=== PATIENT | female | born 1940 | race Caucasian/White ===

== ENCOUNTER 2020-04-19 16:24 | Inpatient (IN) | payer OTHER ==
[2020-04-19] MEDS ORDERED: LACTATED RINGERS SOLUTION 1000 ML INFUS.BAG IV ONE (17:25)
--- NOTE | 2020-04-19 17:44 | PDOC ---
History of Present Illness - General Chief Complaint: Lightheaded Stated Complaint: DIZZINESS Time Seen by Provider: 04/19/20 16:35 - History of Present Illness Initial Comments: 04/19/20 17:30 79F PMH HTN, CAD, PVD, thoracic aortic aneurism p/w repeated episodes of dizziness/lightheadedness since yesterday. Pt states symptoms began last evening when she stood up from the couch after dinner. She felt as if the room was spinning, the she might pass out, or that she might fall. She also vomited, NBNB. The next day, these symptoms recurred, with the exception of nausea, when she stood up from a seated position. Denies ear pain, tinnitus, nausea, headache, fever, or any other symptoms. States she has been taking her medica tions intermittently. States she had been hydrating well, but eating less. ROS GENERAL/CONSTITUTIONAL: No fever or chills. No weakness. HEAD, EYES, EARS, NOSE AND THROAT: No change in vision. No ear pain or discharge. No sore throat. CARDIOVASCULAR: No chest pain or shortness of breath RESPIRATORY: No cough, wheezing, or hemoptysis. GASTROINTESTINAL: No nausea, diarrhea or constipation. GENITOURINARY: No dysuria, frequency, or change in urination. MUSCULOSKELETAL: No joint or muscle swelling or pain. No neck or back pain. SKIN: No rash NEUROLOGIC: +dizziness/lightheadedness. No headache, loss of consciousness, or change in strength/sensation. ENDOCRINE: No increased thirst. No abnormal weight change HEMATOLOGIC/LYMPHATIC: No anemia, easy bleeding, or history of blood clots. ALLERGIC/IMMUNOLOGIC: No hives or skin allergy. PE GENERAL: Awake, alert, and fully oriented, in no acute distress HEAD: No signs of trauma, normocephalic, atraumatic EYES: PERRLA, EOMI, sclera anicteric, conjunctiva clear. No nystagmus ENT: Auricles normal inspection, hearing grossly normal, nares patent, oropharynx clear without exudates. Moist mucosa NECK: Normal ROM, supple, no lymphadenopathy, JVD, or masses LUNGS: No distress, speaks full sentences, clear to auscultation bilaterally HEART: Regular rate and rhythm, normal S1 and S2, 2/6 systolic murmur radiating to carotid best heard in aortic position, no rubs or gallops ABDOMEN: Soft, nontender, normoactive bowel sounds. No guarding, no rebound. No masses EXTREMITIES : Normal inspection, Normal range of motion, no edema. No clubbing or cyanosis. NEUROLOGICAL: Cranial nerves II through XII grossly intact. Normal speech, no focal sensorimotor deficits. Normal finger to nose, heel to madrigal, no dysdiadokinesia, negative romberg. Her symptoms appear when standing, and hesitant gait SKIN: Warm, Dry, normal turgor, no rashes or lesions noted Assessment and Plan 79F PMH HTN, CAD, PVD, thoracic aortic aneurism p/w repeated episodes of d izziness/lightheadedness since yesterday. Pre-syncope vs vertigo. Differential for pre-syncope includes orthostasis (negative orthostatics here), vasovagal, and more concerning pathology including ACS, arrhythmia, brain bleed. Differential for vertigo includes BPPV, supported by sudden onset and occurring with position change from seat to stand, also includes central causes, but less likely given story and exam. -EKG, CXR, CBC, CMP, trops: unremarkable -CT-head -1000ml NS 04/19/20 19:02 Reassess Radiology called about CT-head: small bleed vs. old calcification. Will get repeat CT head in 6-12 hours vs. MRI. Will likely defer decision to admitting team. Patient has no neuro deficits at present, denies nausea, dizziness at rest, or headache. Patient's BP elevated to 180s. Will recheck and administer home BP meds which she did not take today. Repeat EKG unchanged. Admit to tele-obs for pre-syncope Signed out to night team, pending admission. 04/19/20 19:08 Past History - Medical History Allergies/Adverse Reactions: Allergies Allergy/AdvReac Type Severity Reaction Status Date / Time No Known Allergies Allergy Verified 04/19/20 17:45 Home Medications: Ambulatory Orders Aspirin [ASA -] 81 mg PO DAILY 06/12/16 Atorvastatin Ca [Lipitor] 40 mg PO HS 06/12/16 Clopidogrel Bisulfate [Plavix -] 75 mg PO DAILY 06/12/16 Levothyroxine [Synthroid -] 150 mcg PO DAILY 06/12/16 Metoprolol Succinate [Toprol Xl] 50 mg PO BID 06/12/16 Losartan Potassium [Cozaar -] 100 mg PO DAILY #60 tablet 06/14/16 Amlodipine Besylate [Norvasc -] 10 mg PO DAILY 08/20/18 Nifedipine ER [Procardia Xl -] 60 mg PO DAILY 04/19/20 COPD: No HTN: Yes Hypercholesterolemia: Yes Thyroid Disease: Yes - Surgical History Cardiac Surgery: Yes ([facility]) - Psycho-Social/Smoking History Smoking History: Never smoked Have you smoked in the past 12 months: Yes Number of Cigarettes Smoked Daily: 10 'Breaking Loose' booklet given: 06/13/16 - Substance Abuse Hx (Audit-C & DAST Scrn) How often the patient has a drink containing alcohol: Never Score: In Men: 4 or > Positive; In Women: 3 or > Positive: 0 Screen Result (Pos requires Nsg. Audit-10AR): Negative *Physical Exam - Vital Signs Last Vital Signs Temp Pulse Resp BP Pulse Ox 97.4 F L 67 20 151/88 98 04/19/20 16:25 04/19/20 16:25 04/19/20 16:25 04/19/20 17:19 04/19/20 16:25 ED Treatment Course - LABORATORY CBC & Chemistry Diagram: 04/19/20 17:30 04/19/20 17:30 Discharge - Discharge Information Problems reviewed: Yes Clinical Impression/Diagnosis: Pre-syncope, Dizziness - Admission Yes - Follow up/Referral - Patient Discharge Instructions - Post Discharge Activity
[2020-04-19 17:45] LABS: BASO % 1.2 % (0-2.0); HEMATOCRIT 43.4 % (32.4-45.2); HEMOGLOBIN 14.5 GM/dL (10.7-15.3); LYMPH % 21.8 % (8-40); MCH 31.5 pg (25.7-33.7); MCHC 33.3 g/dl (32.0-36.0); MEAN CELL VOLUME 94.6 fl (80-96); MONO % 5.6 % (3.8-10.2); NEUT % 69.4 % (42.8-82.8); PLATELET COUNT 204 K/MM3 (134-434); RBC 4.58 M/mm3 (3.60-5.2); RDW 13.4 % (11.6-15.6); WHITE BLOOD COUNT 8.3 K/mm3 (4.0-10.0)
[2020-04-19 18:21] LABS: ALBUMIN 3.9 g/dl (3.4-5.0); ALK PHOS 75 U/L (45-117); ANION GAP 9 MMOL/L (8-16); BILIRUBIN,TOTAL 0.4 mg/dL (0.2-1); BLOOD UREA NITROGEN 19.2 mg/dL (7-18); CALCIUM 9.3 mg/dL (8.5-10.1); CHLORIDE 106 mmol/L (98-107); CO2 25 mmol/L (21-32); CREATININE 0.9 mg/dL (0.55-1.3); GLUCOSE,RANDOM 120 mg/dL (74-106); POTASSIUM 4.2 mmol/L (3.5-5.1); SGOT/AST 17 U/L (15-37); SGPT/ALT 20 U/L (13-61); SODIUM 141 mmol/L (136-145); TOT PROT 6.8 g/dl (6.4-8.2)
--- NOTE | 2020-04-19 18:35 | PDOC ---
Documentation entered by Shaw Victoria SCRIBE, acting as scribe for Zenobia Shafer MD. Zenobia Shafer MD: This documentation has been prepared by the fideibe, Shaw Victoria SCRIBE, under my direction and personally reviewed by me in its entirety. I confirm that the documentation accurately reflects all work, treatment, procedures, and medical decision making performed by me. Attending Attestation - Resident Resident Name: [email or web address] - ED Attending Attestation I have performed the following: I have examined & evaluated the patient, The case was reviewed & discussed with the resident, I agree w/resident's findings & plan, Exceptions are as noted - HPI HPI: 04/19/20 17:32 The patient is an 79 year old female with a significant past medical history of HTN, HLD, CAD, PVD, thoracic aortic aneurism, cardiac stents placed - 4 years ago at [facility] who presents to the ED with dizziness that began last night. The patient reports while sitting down eating last night she stood up and i mmediately felt dizzy and like the room spinning but also described as lightheadedness. This caused nausea and one episode of NBNB vomiting. She endorses the lightheadedness has continued today whenever she stands but denies any further nausea of vomiting. The patient also endorses feeling unsteady and unbalanced on her feet. The patient denies chest pain and shortness of breath. Denies fever, chills, and/or any other GI symptoms. Denies any symptoms. Denies any other symptoms. Allergies: NKDA - Physicial Exam PE: 04/19/20 18:30 General: well appearing HEENT: NCAT, no nystagmus Chest: CTAB, good air entry, no wheezes rales or rhonchi CVS: + s1 s2 Neuro: awake, alert, responds appropriately to questions, ambulatory with steady gait, no focal deficits - Medical Decision Making 04/19/20 18:32 79 yo F here with dizziness often described as lightheadedness but with some component of room spinning, no focal deficits on exam and patient outside TPA window and lower suspicion for CVA. More likely presyncopal symptoms possibly 2/2 ACS vs. arrythmia vs. electrolyte abnormality vs. lower suspicion for infection given absence of infectious complaints vs. low suspicion for dissection or critical stenosis given duration of symptoms and patient only with complains when she stands up/changes position. Plan: -labs -cxr -CT head -EKG -admit for presyncope in high risk cardiac patient This clinical encounter is taking place during a federal and state health care emergency attributable to the novel [place] Virus pandemic. The Deputy Court of the Department of Health and Human Services has declared, pursuant to the Public Health Service Act 319F-3 (42 U.S.C. 247d-6d), that a covered persons activities related to medical countermeasures against COVID-19 will be immune from liability under Federal and State law. Discharge - Discharge Information Problems reviewed: Yes Clinical Impression/Diagnosis: Pre-syncope, Dizziness Condition: Stable - Follow up/Referral - Patient Discharge Instructions - Post Discharge Activity
[2020-04-19] MEDS ORDERED: amLODIPine BESYLATE 5 MG TABLET (FP) PO ONE (19:03)
[2020-04-19] MEDS ORDERED: NIFEdipine E.R 60 MG TABLET PO ONE (19:04)
[2020-04-19] MEDS ORDERED: amLODIPine BESYLATE 5 MG TABLET (FP) ONE (19:11)
[2020-04-19] MEDS ORDERED: NIFEdipine E.R. 30 MG TABLET ONE (19:59)
--- NOTE | 2020-04-19 20:14 | PDOC ---
*Physical Exam - Vital Signs Last Vital Signs Temp Pulse Resp BP Pulse Ox 97.4 F L 74 18 197/119 H 98 04/19/20 16:25 04/19/20 20:00 04/19/20 20:00 04/19/20 20:00 04/19/20 20:00 ED Treatment Course - LABORATORY CBC & Chemistry Diagram: 04/19/20 17:30 04/19/20 17:30 - ADDITIONAL ORDERS Additional order review: Laboratory Results 04/19/20 17:30 Sodium 141 Potassium 4.2 Chloride 106 Carbon Dioxide 25 Anion Gap 9 BUN 19.2 H Creatinine 0.9 Est GFR (CKD-EPI)AfAm 69.50 Est GFR (CKD-EPI)NonAf 59.96 Random Glucose 120 H Calcium 9.3 Total Bilirubin 0.4 AST 17 ALT 20 Alkaline Phosphatase 75 Troponin I < 0.02 Total Protein 6.8 Albumin 3.9 04/19/20 17:30 RBC 4.58 MCV 94.6 MCHC 33.3 RDW 13.4 MPV 9.0 D Neutrophils % 69.4 Lymphocytes % 21.8 Monocytes % 5.6 Eosinophils % 2.0 Basophils % 1.2 - Medications Given in the ED: ED Medications Discontinued Medications Generic Name Dose Route Start Last Admin Trade Name Freq PRN Reason Stop Dose Admin Amlodipine Besylate 5 mg 04/19/20 19:03 04/19/20 19:15 Norvasc - PO 04/19/20 19:04 5 mg ONCE ONE Administration Lactated Ringer's 1,000 ml 04/19/20 17:25 04/19/20 17:43 Lactated Ringers Solution IV 04/19/20 17:26 1,000 ml ONCE ONE Administration Metoprolol Succinate 50 mg 04/19/20 19:03 04/19/20 19:15 Toprol Xl - PO 04/19/20 19:04 50 mg ONCE ONE Administration Nifedipine 60 mg 04/19/20 19:04 04/19/20 20:03 Procardia Xl - PO 04/19/20 19:05 60 mg ONCE ONE Administration Medical Decision Making - Medical Decision Making 04/19/20 20:14 CTH - very small hyperdensity R solano radiata image 36 - small bleed vs calcification, chronic ischemic changes Admitted to tele hospitalist Consulted neurosx Dr De Souza - agrees with repeat imaging, BP control, not surgical candidate, no NSAIDs, will evaluate inpatient Discharge - Discharge Information Problems reviewed: Yes Clinical Impression/Diagnosis: Pre-syncope, Dizziness Condition: Stable - Follow up/Referral - Patient Discharge Instructions - Post Discharge Activity
[2020-04-19] MEDS ORDERED: SODIUM CHLORIDE 1,000 ML IV SCH ×2 (20:30→21:00)
[2020-04-19] MEDS ORDERED: LOSARTAN POTASSIUM 50 MG TABLET (FP) PO ONE (20:38)
--- NOTE | 2020-04-19 20:53 | HP ---
CHIEF COMPLAINT: Dizziness PCP: HISTORY OF PRESENT ILLNESS: Pt is a 79 year old female with a PMHx of HTN, HLD, CAD, thoracic aortic aneurysm, cardiac stent (4 years ago at [facility]), PVD presenting after she stood up from her chair last night which caused the room to spin. Pt states this continued for some time and was unable to get up without the room spinning in fear of falling down. Pt denies any loss of consciousness, or head trauma as she immediately sat down back in her chair to avoid a fall. States she eventually got up to get her dinner after symptoms improved slightly, which she was able to eat. Shortly afterwards, she had an episode of vomiting (nonbloody, nonbilious) which contained her food that she just ate. Pt states she came to the ED as her symptoms of vertigo still persisted, and is now complaining of an occipital headache. Pt admits to smoking 1 pack of cigarettes every 3 days for "as long as she can remember". Admits to headache, nausea, vomiting x1. Denies headache, chest pain, SOB, facial droop, muscle weakness, slurred speech, diarrhea, constipation, urinary symptoms. In the ED, pt was found to have BP 198/78 and was given Norvasc 5mg and Metoprolol 100mg. Repeat BP 180/108. EKG showed NSR and no ischemic changes. Trop negative x1. PAST MEDICAL HISTORY: As stated in HPI PAST SURGICAL HISTORY: Cardiac stents Allergies No Known Allergies Allergy (Verified 04/19/20 17:45) HOME MEDICATIONS: Home Medications Medication Instructions Recorded Aspirin [ASA -] 81 mg PO DAILY 06/12/16 Atorvastatin Ca [Lipitor] 40 mg PO HS 06/12/16 Clopidogrel Bisulfate [Plavix -] 75 mg PO DAILY 06/12/16 Levothyroxine [Synthroid -] 150 mcg PO DAILY 06/12/16 Metoprolol Succinate [Toprol Xl] 50 mg PO BID 06/12/16 Losartan Potassium [Cozaar -] 100 mg PO DAILY #60 tablet 06/14/16 Amlodipine Besylate [Norvasc -] 10 mg PO DAILY 08/20/18 Nifedipine ER [Procardia Xl -] 60 mg PO DAILY 04/19/20 REVIEW OF SYSTEMS CONSTITUTIONAL: Absent: fever, chills, diaphoresis, generalized weakness, malaise, loss of appetite, weight change HEENT: Absent: rhinorrhea, nasal congestion, throat pain, throat swelling, difficulty swallowing, mouth swelling, ear pain, eye pain, visual changes CARDIOVASCULAR: Absent: chest pain, syncope, palpitations, irregular heart rate, lightheadedness, peripheral edema RESPIRATORY: Absent: cough, shortness of breath, dyspnea with exertion, orthopnea, wheezing, stridor, hemoptysis GASTROINTESTINAL: Absent: abdominal pain, abdominal distension, nausea, vomiting, diarrhea, constipation, melena, hematochezia GENITOURINARY: Absent: dysuria, frequency, urgency, hesitancy, hematuria, flank pain, genital pain MUSCULOSKELETAL: Absent: myalgia, arthralgia, joint swelling, back pain, neck pain SKIN: Absent: rash, itching, pallor HEMATOLOGIC/IMMUNOLOGIC: Absent: easy bleeding, easy bruising, lymphadenopathy, frequent infections ENDOCRINE: Absent: unexplained weight gain, unexplained weight loss, heat intolerance, cold intolerance NEUROLOGIC: Admits headache occipital, dizziness Absent: focal weakness or paresthesias, unsteady gait, seizure, mental status changes, bladder or bowel incontinence PSYCHIATRIC: Absent: anxiety, depression, suicidal or homicidal ideation, hallucinations. PHYSICAL EXAMINATION Vital Signs - 24 hr 04/19/20 04/19/20 04/19/20 16:25 17:19 18:58 Temperature 97.4 F L Pulse Rate 67 Pulse Rate [ Left Radial] Respiratory 20 Rate Blood Pressure 165/84 Blood Pressure 180/97 H [Left Arm] Blood Pressure 163/103 H [Left side Sitting] Blood Pressure 175/98 H [Left side Standing] Blood Pressure 151/88 [Left side Supine] O2 Sat by Pulse 98 Oximetry (%) 04/19/20 04/19/20 19:10 20:00 Temperature Pulse Rate Pulse Rate [ 68 74 Left Radial] Respiratory 18 18 Rate Blood Pressure Blood Pressure 198/78 H 197/119 H [Left Arm] Blood Pressure [Left side Sitting] Blood Pressure [Left side Standing] Blood Pressure [Left side Supine] O2 Sat by Pulse 97 98 Oximetry (%) GENERAL: Awake, alert, and fully oriented, in no acute distress. HEAD: Normal with no signs of trauma. EYES: Pupils equal, round and reactive to light, extraocular movements intact, sclera anicteric, conjunctiva clear. No lid lag. EARS, NOSE, THROAT: Ears normal, nares patent, oropharynx clear without exudates. Moist mucous membranes. NECK: Normal range of motion, supple without lymphadenopathy, JVD, or masses. LUNGS: Breath sounds equal, clear to auscultation bilaterally. No wheezes, and no crackles. No accessory muscle use. HEART: Regular rate and rhythm, normal S1 and S2. 3/6 systolic murmur in aortic area. ABDOMEN: Soft, nontender, not distended, normoactive bowel sounds, no guarding, no rebound, no masses. No hepatomegaly or splenomegaly. MUSCULOSKELETAL: Normal range of motion at all joints. No bony deformities or tenderness. No CVA tenderness. UPPER EXTREMITIES: 2+ pulses, warm, well-perfused. No cyanosis. No clubbing. No peripheral edema. LOWER EXTREMITIES: 2+ pulses, warm, well-perfused. No calf tenderness. No peripheral edema. NEUROLOGICAL: Dizziness upon standing up "room spinning". Cranial nerves II-XII intact. Normal speech. Normal gait. Normal finger to nose, heel to madrigal testing. PSYCHIATRIC: Cooperative. Good eye contact. Appropriate mood and affect. SKIN: Warm, dry, normal turgor, no rashes or lesions noted, normal capillary refill. Laboratory Results - last 24 hr 04/19/20 04/19/20 17:30 17:30 WBC 8.3 RBC 4.58 Hgb 14.5 Hct 43.4 MCV 94.6 MCH 31.5 MCHC 33.3 RDW 13.4 Plt Count 204 MPV 9.0 D Absolute Neuts (auto) 5.7 Neutrophils % 69.4 Lymphocytes % 21.8 Monocytes % 5.6 Eosinophils % 2.0 Basophils % 1.2 Nucleated RBC % 0 Sodium 141 Potassium 4.2 Chloride 106 Carbon Dioxide 25 Anion Gap 9 BUN 19.2 H Creatinine 0.9 Est GFR (CKD-EPI)AfAm 69.50 Est GFR (CKD-EPI)NonAf 59.96 Random Glucose 120 H Calcium 9.3 Total Bilirubin 0.4 AST 17 ALT 20 Alkaline Phosphatase 75 Troponin I < 0.02 Total Protein 6.8 Albumin 3.9 ASSESSMENT/PLAN: Pt is a 79 year old female with PMHx of HTN, thoracic aortic aneurysm, CAD sp stents, HLD presenting with episodes of dizziness since last night admitted for presyncopal episode (rule out hemorrhage). CT head showed small bleed vs old calcification. BP elevated at 190s/100s. #Presyncopal episode rule out intracranial hemorrhage -Initial CT showed possible small bleed vs old calcifiation as per Imaging adoption coordinator; repeat head CT in 6 hours -Admit to tele -Neurosurg consulted (Dr. De Souza) -Neurology consulted (Dr. Kumari) -NPO in case of any intervention by Neurosurg -Avoid full dose ASA/anticoagulation -Smoking cessation counseling #Hypertensive urgency vs emergency -BP in 190s/100s ; given Norvasc 5mg, Metoprolol 100mg and Procardia 60mg, Losartan 50mg in ED -EKG NSR, no ST changes, troponins negative x1 -Serial trops and repeat EKG in AM -Cardio (Dr. Hollingsworth) consulted due to hx of thoracic aortic aneurysm #BPPV -Started on meclizine 25mg daily -Possible BPPV due to vertigo symptoms in advanced age patient #Hx of HLD -Continued home Lipitor 40mg FEN: -NS at 45cc/hr -Sodium controlled diet Prophylaxis: -SCD Dispo: Admitted to tele for hypertensive emergency vs. urgency with rule out brain bleed. Neurosurg, neurology and cardiology consults placed. Follow up on CT head in 6 hours to rule out brain bleed. Trops and EKG in AM. Family Medical History Family History: Unremarkable Problem List - Problem (1) Dizziness Code(s): R42 - DIZZINESS AND GIDDINESS (2) Pre-syncope Code(s): R55 - SYNCOPE AND COLLAPSE (3) CAD (coronary artery disease) Code(s): I25.10 - ATHSCL HEART DISEASE OF [place] CORONARY ARTERY W/O ANG PCTRS (4) Claudication Code(s): I73.9 - PERIPHERAL VASCULAR DISEASE, UNSPECIFIED (5) Encounter for smoking cessation counseling Code(s): Z71.6 - TOBACCO ABUSE COUNSELING (6) HTN (hypertension) Code(s): I10 - ESSENTIAL (PRIMARY) HYPERTENSION Visit type - Medication Review Med list reviewed for High Risk Meds patients 65 and older: No - Emergency Visit Emergency Visit: Yes ED Registration Date: 04/19/20 Care time: The patient presented to the Emergency Department on the above date and was hospitalized for further evaluation of their emergent condition. - New Patient This patient is new to me today: Yes Date on this admission: 04/19/20 - Critical Care Critical Care patient: No ATTENDING PHYSICIAN STATEMENT I saw and evaluated the patient. I reviewed the resident's note and discussed the case with the resident. I agree with the resident's findings and plan as documented. SUBJECTIVE: OBJECTIVE: ASSESSMENT AND PLAN:
--- NOTE | 2020-04-19 20:58 | PN ---
Teaching Attending Note Name of Resident: Edwin Ayala ATTENDING PHYSICIAN STATEMENT I saw and evaluated the patient. I reviewed the resident's note and discussed the case with the resident. I agree with the resident's findings and plan as documented. SUBJECTIVE: 79 year old female with a significant past medical history of HTN, HLD, PVD, thoracic aortic aneurism, CAD s/p stents presented with lightheadedness, dizziness and headache. As per patient her symptoms started last night after having dinner. She was trying to stand up from sitting position and started feeling dizzy. She described dizziness as room spinning sensation. She also feels room spinning sensation when she lies on left side. Associated symptoms were nausea and NB vomiting. Her lightheadedness continued to day so decided to come to hospital. She denies chest pain, SOB, focal weakness, facial droop, slurred speech, diarrhea, constipation, urinary symptoms. OBJECTIVE: Last Vital Signs Temp Pulse Resp BP Pulse Ox 97.4 F L 74 18 197/119 H 98 04/19/20 16:25 04/19/20 20:00 04/19/20 20:00 04/19/20 20:00 04/19/20 20:00 GENERAL: Normal built, NAD HEAD: NC/AT EYES: PERRLA, EOMI, sclera anicteric, conjunctiva clear. No nystagmus ENT: Auricles normal inspection, hearing grossly normal, nares patent, oropharynx clear without exudates. Moist mucosa NECK: Normal ROM, supple, no lymphadenopathy, JVD, or masses LUNGS: No distress, speaks full sentences, clear to auscultation bilaterally HEART: RRR, s1s2+, systolic murmur aortic area ABDOMEN: Soft, nontender, normoactive bowel sounds. No guarding, no rebound. No masses EXTREMITIES : Normal inspection, Normal range of motion, no edema. No clubbing or cyanosis. NEUROLOGICAL:carnial nerves intact, A&0 x3, no focal neuralgic deficit, feels dizzy upon standing up, Finger nose negative SKIN: Warm, Dry, normal turgor, no rashes or lesions note She was found to have eleavted BP on arriva 180s/120 Ct head showed calcification vs small bleed ASSESSMENT AND PLAN: Possible Hypertensive emergency as CT head reporting small bleed vs calcification r/o ICH Dizzziness /positional vertigo possible BPPV r/o orthostasis / cardiac arrhythmias mild dehydration HTN, HLD, CAD, PVD, thoracic aortic aneurism Admit to tele] Neurosurgery was consulted by ED follow recommendations BP control : She received Norvasc and metoprolol. Give home dose losartan add hydralazine if needed resume home antihypertensives from AM serial cardiac enzymed EKG Beronica maneuver trial of meclizine repeat CT head in 6 hours resume home meds DVT ppx gentle hydration Fall precautions mg,phos, CPK, TSH discussed with resident staff in details
[2020-04-19] MEDS ORDERED: ATORVASTATIN CA 40 MG TABLET (FP) ONE (21:45)
[2020-04-19] MEDS ORDERED: LOSARTAN POTASSIUM 50 MG TABLET (FP) ONE (21:45)
[2020-04-19] MEDS: ATORVASTATIN CA 40 MG TABLET (FP) PO SCH (21:48)
[2020-04-19] MEDS ORDERED: MECLIZINE HCL 25 MG TABLET (FP) PO ONE (22:17)
[2020-04-19] MEDS ORDERED: MECLIZINE HCL 25 MG TABLET (FP) ONE (22:57)
[2020-04-19] MEDS: SODIUM CHLORIDE 1,000 ML IV SCH (23:15)
[2020-04-20 06:17] VITALS: BMI 24.0
[2020-04-20] MEDS ORDERED: LEVOTHYROXINE NA 125 MCG TABLET (FP) PO SCH (07:00)
[2020-04-20 07:44] LABS: BASO % 1.3 % (0-2.0); EOS % 2.6 % (0-4.5); HEMATOCRIT 45.7 % (32.4-45.2); HEMOGLOBIN 15.3 GM/dL (10.7-15.3); LYMPH % 29.2 % (8-40); MCH 31.7 pg (25.7-33.7); MCHC 33.5 g/dl (32.0-36.0); MEAN CELL VOLUME 94.7 fl (80-96); MEAN PLT VOLUME 9.9 fl (7.5-11.1); MONO % 7.3 % (3.8-10.2); NEUT % 59.6 % (42.8-82.8); PLATELET COUNT 209 K/MM3 (134-434); RBC 4.83 M/mm3 (3.60-5.2); RDW 13.3 % (11.6-15.6)
[2020-04-20 08:15] LABS: ALK PHOS 81 U/L (45-117); ANION GAP 6 MMOL/L (8-16); BILIRUBIN,TOTAL 0.6 mg/dL (0.2-1); BLOOD UREA NITROGEN 12.1 mg/dL (7-18); CALCIUM 9.8 mg/dL (8.5-10.1); CHLORIDE 108 mmol/L (98-107); CO2 30 mmol/L (21-32); CREATININE 0.8 mg/dL (0.55-1.3); GLUCOSE,RANDOM 93 mg/dL (74-106); MAGNESIUM 2.1 mg/dL (1.8-2.4); POTASSIUM 3.8 mmol/L (3.5-5.1); SGOT/AST 15 U/L (15-37); SGPT/ALT 20 U/L (13-61); SODIUM 144 mmol/L (136-145); TOT PROT 7.2 g/dl (6.4-8.2)
--- NOTE | 2020-04-20 08:24 | CON.NEURO ---
Consult Consult Specialty:: [place] Referred by:: PCP Reason for Consultation:: Dizziness - History of Present Illness History of Present Illness: 79 years Right-handed female patient with present medical history: PMHx of HTN, HLD, CAD, thoracic aortic aneurysm, cardiac stent (4 years ago at [facility]), PVD According to the patient she stood up and she felt dizzy no loss of consciousness no seizure-like activity. No report of any recent travel patient denies any loss of consciousness CAT scan of the head revealed mild 0.5 mm area of hyperdensity consistent with petechial hemorrhage. When the patient came into the emergency room she was stepwise patient was admitted to the medical floor telemetry for further treatment and management. Since admission no seizure activity no loss of consciousness no chest pain. in the emergency room when the patient presented she was slightly hemodynamically unstable with a blood pressure high. Patient was on aspirin and Plavix at home - History Source History Provided By: Patient Limitations to Obtaining History: No Limitations - Past Medical History Cardio/Vascular: Yes: CAD, HTN, Hyperlipdemia, Other (claudication) ...: No Endocrine: Yes: Hypothyroidism - Past Surgical History Past Surgical History: Yes: Stent - Alcohol/Substance Use Hx Alcohol Use: No History of Substance Use: reports: None - Smoking History Smoking history: Current every day smoker Have you smoked in the past 12 months: Yes Aproximately how many cigarettes per day: 4 - Social History ADL: Independent History of Recent Travel: Yes ([place]) Home Medications - Allergies Allergies/Adverse Reactions: Allergies Allergy/AdvReac Type Severity Reaction Status Date / Time No Known Allergies Allergy Verified 04/19/20 17:45 - Home Medications Home Medications: Ambulatory Orders Aspirin [ASA -] 81 mg PO DAILY 06/12/16 Atorvastatin Ca [Lipitor] 40 mg PO HS 06/12/16 Clopidogrel Bisulfate [Plavix -] 75 mg PO DAILY 06/12/16 Levothyroxine [Synthroid -] 125 mcg PO DAILY 06/12/16 Metoprolol Succinate [Toprol Xl] 50 mg PO BID 06/12/16 Losartan Potassium [Cozaar -] 100 mg PO DAILY #60 tablet 06/14/16 Amlodipine Besylate [Norvasc -] 10 mg PO DAILY 08/20/18 Nifedipine ER [Procardia Xl -] 60 mg PO DAILY 04/19/20 Family Medical History Family History: Unremarkable Review of Systems - Review of Systems Constitutional: reports: No Symptoms Eyes: reports: No Symptoms Physical Exam-Neuro Vital Signs: Vital Signs Temperature 98.0 F 04/20/20 05:00 Pulse Rate 68 04/20/20 05:00 Respiratory Rate 20 04/20/20 05:00 Blood Pressure 151/91 04/20/20 05:00 O2 Sat by Pulse Oximetry (%) 95 04/20/20 05:00 Labs: CBC, BMP 04/20/20 06:46 - Neuro Exam Level Of Consciousness: Yes: Oriented to Person, Oriented to Place, Oriented to Time Eyes: Yes: PERRLA Speech: WNL Dominant Hand: Right Cranial Nerves II-XII Intact: Yes Gag: Present DTR's: 1+ Left Bicep, 1+ Right Bicep, 1+ Left Tricep, 1+ Right Tricep Response to light touch: Normal Response to pain prick: Normal Response to temperature: Normal Response to vibration: Normal Motor Strength: 3/5: Left Arm, Right Arm, Left Leg, Right Leg Gait: Deferred Imaging - Results Cat Scan: Image Reviewed Problem List - Problems (1) Hemorrhagic stroke Code(s): I61.9 - NONTRAUMATIC INTRACEREBRAL HEMORRHAGE, UNSPECIFIED (2) Dizziness Code(s): R42 - DIZZINESS AND GIDDINESS (3) Hypertensive emergency Code(s): I16.1 - HYPERTENSIVE EMERGENCY Assessment/Plan 1. Tight blood pressure control. 2. The hemorrhage is so tiny that the risk with continuing the antiplatelet therapy will be very minimal 3. Take the aspirin every other day. 4. Continue Plavix the same. 5. There is no need for an MRI of the brain as the final change the plan of treatment. 6. Follow-up with cardiology. 7. Physical therapy. Thank you very much for allowing me to be part this patient's neurological care Tadeo Kumari M.D.
[2020-04-20] MEDS ORDERED: PT OWN MED DRAWER 7, Y5N ONE ×2 (09:07→10:49)
--- NOTE | 2020-04-20 09:32 | EKG ---
Test Reason : Blood Pressure : / mmHG Vent. Rate : 065 BPM Atrial Rate : 065 BPM P-R Int : 192 ms QRS Dur : 078 ms QT Int : 448 ms P-R-T Axes : 050 -36 016 degrees QTc Int : 465 ms POOR DATA QUALITY, INTERPRETATION MAY BE ADVERSELY AFFECTED NORMAL SINUS RHYTHM POSSIBLE LEFT ATRIAL ENLARGEMENT LEFT AXIS DEVIATION ABNORMAL ECG WHEN COMPARED WITH ECG OF 19-APR-2020 16:42, No significant changes Confirmed by Howard Peñaloza ([id number]) on 04/20/2020 9:31:59 AM Referred By: Confirmed By:Howard Peñaloza
--- NOTE | 2020-04-20 09:33 | EKG ---
Test Reason : Blood Pressure : / mmHG Vent. Rate : 069 BPM Atrial Rate : 069 BPM P-R Int : 168 ms QRS Dur : 084 ms QT Int : 430 ms P-R-T Axes : 029 -45 048 degrees QTc Int : 460 ms POOR DATA QUALITY, INTERPRETATION MAY BE ADVERSELY AFFECTED NORMAL SINUS RHYTHM POSSIBLE LEFT ATRIAL ENLARGEMENT LEFT AXIS DEVIATION ABNORMAL ECG WHEN COMPARED WITH ECG OF 12-JUN-2016 18:37, T WAVE INVERSION NO LONGER EVIDENT IN ANTEROLATERAL LEADS QT HAS SHORTENED Confirmed by Howard Peñaloza ([id number]) on 04/20/2020 9:33:18 AM Referred By: Confirmed By:Howard Peñaloza
--- NOTE | 2020-04-20 09:34 | PN ---
Progress Note (short form) - Note Progress Note: NEUROSURGERY CONSULT DICTATED Chart reviewed CT reviewed Pt examined H/o HTN, HLD, CAD, thoracic aortic aneurysm, cardiac stent, PAD c/o dizziness and vertigo. Denies any LOC, recent fall, head trauma. One episode of vomiting. Came to the ED as her symptoms of vertigo still persisted, and c/o of occipital headache initially. Hypertensive in ED, Had prior similar symptoms but not as severe. No H/A or N/V this am. PE: AF, VSS BP lower General- unremarkable, sitting up at bedside CN- intact; Motor- 5/5 without drift; Sensation- intact LT; DTR- 1+; Cerebellar- mild past-pointing B Labs reviewed Head CT- R frontal periventricular small hyperdensity 2 x2 mm with no edema or mass effect f/u Head CT- Small R frontal hyperdensity slightly larger 3x5 mm/more diffuse and faint than initial CT Small R frontal hypertensive bleed No neurosurgical intervention indicated Smoking cessation BP control
[2020-04-20] MEDS ORDERED: NIFEdipine E.R 60 MG TABLET PO SCH (10:00)
[2020-04-20] MEDS: MECLIZINE HCL 25 MG TABLET (FP) PO SCH (10:52)
[2020-04-20] MEDS: LOSARTAN POTASSIUM 50 MG TABLET (FP) PO SCH (10:54)
--- NOTE | 2020-04-20 10:54 | CON.CARD ---
Cardiology Consult (text) - Consultation Consultation Note: Chief Complaint: dizzy History of Present Illness: 79-year-old female presents to the ED with complaints of dizziness. Yesterday when she stood up she felt room spinning. She sat back down and sxs improved, but still with dizzy if turned head or stood up again. She tried to eat but then vomited due to spinning sensation. No cp sob palps loc pnd orthopnea le edema. PMH: thoracic aorta aneurysm, CEA, chronic occluded LICA PAD/LE bypass chronic CAD, no ischemia/angina h/o postop CVA hypertension, dyslipidemia, hyperthyroidism. + cigs Home Medications - Allergies Allergies/Adverse Reactions: Allergies Allergy/AdvReac Type Severity Reaction Status Date / Time No Known Allergies Allergy Verified 04/19/20 17:45 Home Medications Medication Instructions Recorded Aspirin [ASA -] 81 mg PO DAILY 06/12/16 Atorvastatin Ca [Lipitor] 40 mg PO HS 06/12/16 Clopidogrel Bisulfate [Plavix -] 75 mg PO DAILY 06/12/16 Levothyroxine [Synthroid -] 125 mcg PO DAILY 06/12/16 Metoprolol Succinate [Toprol Xl] 50 mg PO BID 06/12/16 Losartan Potassium [Cozaar -] 100 mg PO DAILY #60 tablet 06/14/16 Amlodipine Besylate [Norvasc -] 10 mg PO DAILY 08/20/18 Nifedipine ER [Procardia Xl -] 60 mg PO DAILY 04/19/20 Family Disease History - Family Disease History Family History: Denies (no cmp) Review of Systems per hpi; all others nl Vital Signs: Vital Signs Period Temp Pulse Resp BP Sys/Aranda Pulse Ox Last 24 Hr 97.4 F-98.0 F 66-74 18-20 98-198/61-119 94-98 Constitutional: Yes: Well Nourished, No Distress Eyes: No: Sclera Icterus HENT: No: Nasal Congestion Neck: No: Decreased ROM Respiratory: Yes: CTA Bilaterally. No: Accessory Muscle Use, Rales, Wheezes Gastrointestinal: Yes: Normal Bowel Sounds. No: Distention, Hepatomegaly, Palpable Mass, Tenderness Cardiovascular: Yes: Regular Rate and Rhythm JVD: No Carotid Bruit: No PMI: Non-Displaced Heart Sounds: Yes: S1, S2. No: Gallop Murmur: No: Systolic Murmur, Diastolic Murmur Extremities: No: Cold, Cyanosis Edema: No Peripheral Pulses: 2+ Left Carotid, 2+ Right Carotid, 2+ Left Doralis Pedis, 2+ Right Dorsalis Pedis Integumentary: No: Jaundice Neurological: Yes: Alert, Oriented (x3) Psychiatric: No: Agitated - Other Data Labs, Other Data: Laboratory Last Values WBC 8.0 K/mm3 (4.0-10.0) 04/20/20 06:46 RBC 4.83 M/mm3 (3.60-5.2) 04/20/20 06:46 Hgb 15.3 GM/dL (10.7-15.3) 04/20/20 06:46 Hct 45.7 % (32.4-45.2) H 04/20/20 06:46 MCV 94.7 fl (80-96) 04/20/20 06:46 MCH 31.7 pg (25.7-33.7) 04/20/20 06:46 MCHC 33.5 g/dl (32.0-36.0) 04/20/20 06:46 RDW 13.3 % (11.6-15.6) 04/20/20 06:46 Plt Count 209 K/MM3 (134-434) 04/20/20 06:46 MPV 9.9 fl (7.5-11.1) 04/20/20 06:46 Absolute Neuts (auto) 4.8 K/mm3 (1.5-8.0) 04/20/20 06:46 Neutrophils % 59.6 % (42.8-82.8) 04/20/20 06:46 Lymphocytes % 29.2 % (8-40) D 04/20/20 06:46 Monocytes % 7.3 % (3.8-10.2) 04/20/20 06:46 Eosinophils % 2.6 % (0-4.5) 04/20/20 06:46 Basophils % 1.3 % (0-2.0) 04/20/20 06:46 Nucleated RBC % 0 % (0-0) 04/20/20 06:46 Sodium 144 mmol/L (136-145) 04/20/20 06:46 Potassium 3.8 mmol/L (3.5-5.1) 04/20/20 06:46 Chloride 108 mmol/L (98-107) H 04/20/20 06:46 Carbon Dioxide 30 mmol/L (21-32) 04/20/20 06:46 Anion Gap 6 MMOL/L (8-16) L 04/20/20 06:46 BUN 12.1 mg/dL (7-18) 04/20/20 06:46 Creatinine 0.8 mg/dL (0.55-1.3) 04/20/20 06:46 Est GFR (CKD-EPI)AfAm 80.14 04/20/20 06:46 Est GFR (CKD-EPI)NonAf 69.14 04/20/20 06:46 Random Glucose 93 mg/dL (74-106) 04/20/20 06:46 Calcium 9.8 mg/dL (8.5-10.1) 04/20/20 06:46 Phosphorus 4.0 mg/dL (2.5-4.9) 04/20/20 06:46 Magnesium 2.1 mg/dL (1.8-2.4) 04/20/20 06:46 Total Bilirubin 0.6 mg/dL (0.2-1) 04/20/20 06:46 AST 15 U/L (15-37) 04/20/20 06:46 ALT 20 U/L (13-61) 04/20/20 06:46 Alkaline Phosphatase 81 U/L (45-117) 04/20/20 06:46 Creatine Kinase 79 U/L (26-192) 04/19/20 21:50 Troponin I < 0.02 ng/ml (0.00-0.05) 04/20/20 06:46 Total Protein 7.2 g/dl (6.4-8.2) 04/20/20 06:46 Albumin 4.0 g/dl (3.4-5.0) 04/20/20 06:46 TSH 0.10 uIU/ml (0.358-3.74) L 04/20/20 06:46 a/p: carotid 07/2019: patent juan josé, known occluded lica echo 07/2019: nl lv/rv, no sig valve path, ao root 4.2 (stable) Echo 05/2016 here: nl LV/EF; nl RV; nl LA; mild MR/TR; RVSP 30-40; mild ao root and asc aorta dilation MPI 06/10 here (pers): no ST changes vs baseline; normal perfusion; nl EF; no TID reported MPI 12/2014: 3:30min; no ischemia [facility] 2011: pRCA 7-80%; mRCA FIELD AIDE collateralized by left; OM1 60-70%; ecg: unremarkable tele: sr cxr: clear dizziness: -no signs acs, chf, arrhythmia -recent office echo unremarkable and carotids with stable findings of patent juan josé, known occluded lica -tele unremarkable here -sxs seem like vertigo vs orthostatic, feeling better today (after ivfs) -check ortho vitals -ct head with possible small bleed, NS following htn: -improved this AM, cont home meds CAD: -collateralized RCA dz from left system -no ischemia 2014, 2015 stress tests -no angina, no signs acs -cont home meds thoracic aorta aneurysm: -stable size on recent echo and ct, cont bp control diffuse PAD (LEs): -s/p ax-bifem bypass at [place] 2011 -outpt f/u with vascular h/o TIA/cva: -postop LE bypass, watershed infarct on MRI carotid dz: -chronic occlusion LICA; -s/p R CEA [place] 2011
--- NOTE | 2020-04-20 11:27 | PN ---
Teaching Attending Note Name of Resident: Joaquin Mehta ATTENDING PHYSICIAN STATEMENT I saw and evaluated the patient. I reviewed the resident's note and discussed the case with the resident. I agree with the resident's findings and plan as documented. SUBJECTIVE: Seen and examined at bedside. Patient reports mild occipital headache. Found to have positive orthostatics. No reports of spinning sensation at this time. Repeat head CT shows 5 x 3.5 mm punctate hypodensity suggestive of petechial hemorrhage in the right anterior frontal periventricular white matter. OBJECTIVE: Last Vital Signs Temp Pulse Resp BP Pulse Ox 97.7 F 70 20 116/61 94 L 04/20/20 09:19 04/20/20 09:19 04/20/20 09:19 04/20/20 09:19 04/20/20 09:19 PE: Per resident note Labs/Imaging: reviewed ASSESSMENT AND PLAN: 79-year-old female with a history of PAD, hypertension, hyperlipidemia, hypothyroidism, CVA, left internal carotid artery occlusion presents with dizziness and headache found to have hypertensive emergency and petechial intracerebral hemorrhage. #Petechial intracerebral hemorrhage In setting of hypertension: Improved Neurosurgery on board: No neurosurgical intervention required at this time Repeat CT to ensure stability: Double check with neurosurgery regarding timeframe Hold aspirin Control blood pressure #Dizziness May be secondary to intracranial hemorrhage or orthostatic hypotension #Orthostatic hypotension We will hold nifedipine #Decreased TSH Patient likely taking too much levothyroxine Obtain history on recent dose changes from patient Hold home levothyroxine for now TFTs Hypertensive emergency: Improved Improved after restarting home medications Noted decreased TSH likely due to overdosing of levothyroxine Hold nifedipine today due to orthostatic hypotension Continue home medications #History of TIA, PAD, CAD Continue statin Hold ASA given intracranial bleed. DVT PPX: SCDs
--- NOTE | 2020-04-20 12:43 | PN ---
Physical Exam: SUBJECTIVE: No overnight events. Patient seen and examined. Pt endorses headache & vertigo resolved. OBJECTIVE: Vital Signs Period Temp Pulse Resp BP Sys/Aranda Pulse Ox Last 24 Hr 97.4 F-98.0 F 66-74 18-20 98-198/61-119 94-98 GENERAL: The patient is awake, alert, and fully oriented, in no acute distress. HEAD: Normal with no signs of trauma. EYES: PERRL, extraocular movements intact No ptosis. ENT: Ears normal, nares patent, oropharynx clear without exudates, MMM LUNGS: Breath sounds equal, clear to auscultation bilaterally, no wheezes, no crackles, no accessory muscle use. HEART: RRR, S1, S2, 3/6 systolic murmur best heard at aortic area ABDOMEN: Soft, nontender, nondistended, normoactive bowel sounds, no guarding EXTREMITIES: 2+ pulses, warm, well-perfused, no edema. 5/5 Strength b/l UE, LE. Sensation intact b/l UE, LE. NEUROLOGICAL: Cranial nerves II through XII grossly intact. Normal speech. Romberg, Dixhallpike, rapid alternative hand movements, nose to finger, heel to madrigal NEGATIVE PSYCH: Normal mood, normal affect. Laboratory Results - last 24 hr 04/19/20 04/19/20 04/19/20 17:30 17:30 21:50 WBC 8.3 RBC 4.58 Hgb 14.5 Hct 43.4 MCV 94.6 MCH 31.5 MCHC 33.3 RDW 13.4 Plt Count 204 MPV 9.0 D Absolute Neuts (auto) 5.7 Neutrophils % 69.4 Lymphocytes % 21.8 Monocytes % 5.6 Eosinophils % 2.0 Basophils % 1.2 Nucleated RBC % 0 Sodium 141 Potassium 4.2 Chloride 106 Carbon Dioxide 25 Anion Gap 9 BUN 19.2 H Creatinine 0.9 Est GFR (CKD-EPI)AfAm 69.50 Est GFR (CKD-EPI)NonAf 59.96 Random Glucose 120 H Calcium 9.3 Phosphorus Magnesium Total Bilirubin 0.4 AST 17 ALT 20 Alkaline Phosphatase 75 Creatine Kinase Troponin I < 0.02 Cancelled Total Protein 6.8 Albumin 3.9 TSH 04/19/20 04/20/20 04/20/20 21:50 06:46 06:46 WBC 8.0 RBC 4.83 Hgb 15.3 Hct 45.7 H MCV 94.7 MCH 31.7 MCHC 33.5 RDW 13.3 Plt Count 209 MPV 9.9 Absolute Neuts (auto) 4.8 Neutrophils % 59.6 Lymphocytes % 29.2 D Monocytes % 7.3 Eosinophils % 2.6 Basophils % 1.3 Nucleated RBC % 0 Sodium 144 Potassium 3.8 Chloride 108 H Carbon Dioxide 30 Anion Gap 6 L BUN 12.1 Creatinine 0.8 Est GFR (CKD-EPI)AfAm 80.14 Est GFR (CKD-EPI)NonAf 69.14 Random Glucose 93 Calcium 9.8 Phosphorus 4.0 Magnesium 2.1 Total Bilirubin 0.6 AST 15 ALT 20 Alkaline Phosphatase 81 Creatine Kinase 79 Troponin I < 0.02 < 0.02 Total Protein 7.2 Albumin 4.0 TSH 0.10 L Active Medications Generic Name Dose Route Start Last Admin Trade Name Freq PRN Reason Stop Dose Admin Amlodipine Besylate 10 mg 04/20/20 10:00 Norvasc - PO DAILY TIFFANY Atorvastatin Calcium 40 mg 04/19/20 22:00 04/19/20 21:48 Lipitor - PO 40 mg HS TIFFANY Administration Sodium Chloride 1,000 mls @ 45 mls/hr 04/19/20 21:49 04/19/20 23:15 Normal Saline - IV 45 mls/hr ASDIR TIFFANY Administration Levothyroxine Sodium 125 mcg 04/20/20 07:00 04/20/20 06:48 Synthroid - PO 125 mcg DAILY@0700 TIFFANY Administration Losartan Potassium 100 mg 04/20/20 10:00 04/20/20 10:54 Cozaar - PO 100 mg DAILY TIFFANY Administration Meclizine HCl 25 mg 04/20/20 10:00 04/20/20 10:52 Antivert - PO 25 mg DAILY TIFFANY Administration Metoprolol Succinate 50 mg 04/19/20 22:00 04/20/20 10:53 Toprol Xl - PO 50 mg BID TIFFANY Administration Nicotine 14 mg 04/20/20 10:00 Nicoderm Patch - TD DAILY TIFFANY Nifedipine 60 mg 04/20/20 10:00 Procardia Xl - PO DAILY TIFFANY Repeat CTH: minimal increase in size of previously visualized punctuate hyperdensity in R anterior frontal perivetnricular whit matter, now measuring 5X3.5 mm, suggestive of petechial hemorrhage Orthostatic vitals supine 129/53 HR 67 sitting 140/82 HR67 standing 108/71 HR 76 ASSESSMENT/PLAN: 79 F PMH Hypothyroidism, h/o CVA (L ICA occlusion) HTN, PAD, CAD, s/p cardiac stent 4 yrs ago [place], thoracic aortic aneurysm (ascending 4.1 cm, descending 4.7 cm), HLD p/w 2 days vertigo/Headache and 2 weeks of lightheadness. Admitted for hypertensive emergency and being managed for pe techial intracerebral hemorrhage. #Presyncope 2/2 ICH CTH: 3 mm -repeat CTH: 5X3.5 mm petechial hemorrhage -continue to hold home ASA -c/w home losartan, amlodipine, metoprolol for BP control Neurosurgery c/s appreciated: no intervention #Hypertensive emergency -c/w home losartan, amlodipine, metoprolol for BP control; nifedepine held 2/2 orthostatic hypotension -BP improved #Dizziness/Vertigo -dixhall pike negative -orthostatic vitals positive for orthostatic hypotension -nidedipine held for orthostatic hypotension #H/o hypothyroidism. -TSH decreased at 0.1. Free T4, resin T3 uptake are NORMAL. -pt reports no change in her levothyroxine dose. Endorses taking the medication as prescribed. -Low TSH likely 2/2 to levothyroxine dosage -levothyroxine held #CAD, PAD, h/o CVA c/w home dose atorvastatin -hold aspirin 2/2 ICH #DVT PPX SCDs no ACs due to ICH #FEN NS monitor lytes start Na+ controlled diet #DISPO maintain med surg Visit type - Emergency Visit Emergency Visit: Yes ED Registration Date: 04/19/20 Care time: The patient presented to the Emergency Department on the above date and was hospitalized for further evaluation of their emergent condition. - New Patient This patient is new to me today: Yes Date on this admission: 04/20/20 - Critical Care Critical Care patient: No - Medication Review Med list reviewed for High Risk Meds patients 65 and older: Yes ATTENDING PHYSICIAN STATEMENT I saw and evaluated the patient. I reviewed the resident's note and discussed the case with the resident. I agree with the resident's findings and plan as documented. SUBJECTIVE: OBJECTIVE: ASSESSMENT AND PLAN:
[2020-04-20] MEDS: amLODIPine BESYLATE 10 MG TABLET (FP) PO SCH (13:20)
[2020-04-20] MEDS: NICOTINE 14 MG/24 HOURS TOPICAL PATCH TD SCH (13:20)
--- NOTE | 2020-04-20 20:37 | CONS ---
DATE OF CONSULTATION: DATE OF DICTATION: 04/20/2020 REQUESTING PHYSICIAN: Dr. Lorne Wells BURN NURSE: Ivette Holt MD, Neurosurgery CHIEF COMPLAINT: Dizziness/vertigo. HISTORY OF PRESENT ILLNESS: The patient is an 79-year-old right-handed female with a history of hypertension, hypercholesterolemia, coronary artery disease, thoracic aortic aneurysm, and peripheral arterial disease, who complains of increasing dizziness and vertigo approximately 24-hour duration. She initially had some occipital headache with the persistent vertigo. She did have 1 episode of vomiting, but that has since resolved. Her headache has also improved since. She has had prior symptoms like these, but not as severe. She was in the emergency room and was found to be somewhat hypertensive. She denies seizure activity, has no weakness or numbness of her extremities. She did not lose consciousness. PAST MEDICAL HISTORY: Significant for hypertension, thoracic aortic aneurysm, coronary artery disease status post stent placement, peripheral arterial disease, hypercholesterolemia, hypothyroidism. MEDICATIONS: Include Cozaar, Antivert, Nicoderm patch, Toprol-XL, Norvasc, Procardia XL, Lipitor, and Synthroid. ALLERGIES: There are no known diagnosed allergies. FAMILY HISTORY: Noncontributory. SOCIAL HISTORY: She smokes about 1/2 to 1 pack of cigarettes a day. She drinks alcohol socially. She lives at home. She is retired. REVIEW OF SYSTEMS: Otherwise negative for major constitutional, head, neck, cardiovascular, pulmonary, gastrointestinal, genitourinary, endocrinological, neurological, psychological problems except for the above. PHYSICAL EXAMINATION: Vital Signs: Temperature is 97.7. Blood pressure 116/61. Her initial blood pressure in the emergency room was 165/84 and at one point was 180/97. O2 saturation is 94% on room air. HEENT: Examination shows her to be normocephalic, atraumatic, anicteric. Neck: Supple, with no carotid bruit. Coronary: Examination demonstrates a regular rhythm. Lungs: Clear bilaterally. Abdomen: Benign. Extremities: Examination shows no signs of DVT. Neurologic: She is awake, alert, and oriented x4. She is sitting at bedside. Cranial nerve examination is intact II-XII. Motor examination shows 5/5 strength without a drift. Sensory examination is intact to light touch. Deep tendon reflexes are 1+ throughout. Cerebellar examination demonstrated mild past pointing, but she has no tremor. Gait is not tested for safety reasons. LABORATORY: Examination shows white blood count of 8. Hemoglobin was 15.3. Her platelet count was 209,000. Serum sodium was 144, potassium is 3.8. BUN is 12.1 and creatinine 0.8. Calcium is 9.8 and troponin is less than 0.02. Albumin was 4. COVID serology is pending. CT scan of the head from April 19 demonstrated mild cerebral atrophy. There is a punctate right frontal periventricular hyperdensity of approximately 3 mm in diameter. On followup CT scan, the signal was characteristic of less hyperdense and more diffuse and is approximately 3 x 5 mm. There is no associated edema or mass effect. There is no acute fracture or other associated hyperdensity/bleed. IMPRESSION: 1. Probable right frontal small hypertensive bleed. 2. History of thoracic aortic aneurysm. 3. History of peripheral arterial disease. 4. Hypothyroidism. RECOMMENDATION: The patient presents with dizziness and vertigo. She had previously experienced these symptoms, but this is more severe than previously. Presently, her symptoms have improved somewhat. She has no headache, nausea, vomiting, or other neurological symptoms. Her blood pressure is more normalized over the past 12 hours or so. Neurologic examination is nonfocal except for mild past pointing. CT scan of the head demonstrated a right frontal periventricular small hyperdensity which was initially about 2 x 2 mm, which on subsequent followup scans had become more diffuse and faint than the prior CT scan. Given the appearance, this is possibly a small hypertensive hemorrhage. Blood pressure control should be instituted as well as controlling her cerebrovascular disease/coronary artery disease risk factors. The patient is urged strongly to quit smoking and to get her blood pressure under good control. Given the small size of the hemorrhage, neurosurgical intervention is not indicated nor recommended. The above was discussed with the patient at bedside. All questions were answered. IVETTE HOLT M.D. SERGIO/[id number]
[2020-04-20] MEDS: ATORVASTATIN CA 40 MG TABLET (FP) PO SCH (21:15)
[2020-04-20] MEDS: SODIUM CHLORIDE 1,000 ML IV SCH (22:55)
[2020-04-21 07:31] LABS: BASO % 1.1 % (0-2.0); EOS % 3.7 % (0-4.5); HEMATOCRIT 44.8 % (32.4-45.2); HEMOGLOBIN 14.8 GM/dL (10.7-15.3); LYMPH % 32.3 % (8-40); MCH 30.9 pg (25.7-33.7); MEAN CELL VOLUME 93.6 fl (80-96); MEAN PLT VOLUME 9.2 fl (7.5-11.1); MONO % 8.1 % (3.8-10.2); NEUT % 54.8 % (42.8-82.8); PLATELET COUNT 199 K/MM3 (134-434); RBC 4.79 M/mm3 (3.60-5.2); WHITE BLOOD COUNT 7.4 K/mm3 (4.0-10.0)
[2020-04-21 07:40] LABS: ALBUMIN 3.3 g/dl (3.4-5.0); BILIRUBIN,TOTAL 0.6 mg/dL (0.2-1); BLOOD UREA NITROGEN 15.3 mg/dL (7-18); CALCIUM 9.1 mg/dL (8.5-10.1); CREATININE 0.8 mg/dL (0.55-1.3); MAGNESIUM 2.1 mg/dL (1.8-2.4); PHOSPHOROUS 4.1 mg/dL (2.5-4.9); TOT PROT 6.1 g/dl (6.4-8.2)
[2020-04-21] MEDS ORDERED: PT OWN MED DRAWER 7, Y5N ONE (10:42)
[2020-04-21] MEDS: NICOTINE 14 MG/24 HOURS TOPICAL PATCH TD SCH (10:45)
[2020-04-21] MEDS: LOSARTAN POTASSIUM 50 MG TABLET (FP) PO SCH (10:45)
[2020-04-21] MEDS: amLODIPine BESYLATE 10 MG TABLET (FP) PO SCH (10:46)
[2020-04-21] MEDS: MECLIZINE HCL 25 MG TABLET (FP) PO SCH (10:46)
--- NOTE | 2020-04-21 11:48 | PN ---
Progress Note (short form) - Note Progress Note: NEUROSURGERY H/o HTN, HLD, CAD, thoracic aortic aneurysm, cardiac stent, PAD c/o dizziness and vertigo. One episode of vomiting. Came to the ED as her symptoms of vertigo still persisted, and c/o of occipital headache initially but not now. Hypertensive in ED, Had prior similar symptoms but not as severe. No H/A or N/V. Symptoms more severe with sitting up. Describes L ear hearing issue previously. PE: AF, VSS 119/81 General- unremarkable, sitting up at bedside CN- intact; Motor- 5/5 without drift; Sensation- intact LT; DTR- 1+; Cerebellar- mild past-pointing B Labs reviewed Head CT- R frontal periventricular small hyperdensity 2 x2 mm with no edema or mass effect f/u Head CT- Small R frontal hyperdensity slightly larger 3x5 mm/more diffuse and faint than on initial CT Small R frontal hypertensive bleed No neurosurgical intervention indicated Complete cardiology eval Repeat CT prior to discharge to ascertain stability Smoking cessation BP control If no cardiogenic causes of symptoms consider outpatient ENT eval and neurology f/u
[2020-04-21] MEDS ORDERED: SODIUM CHLORIDE 500 ML IV STA (13:22)
--- NOTE | 2020-04-21 13:41 | PN ---
Progress Note (short form) - Note Progress Note: cc: dizziness s: complains of dizziness when standing up. no chest pain, palps, dyspnea Current Medications Generic Name Dose Route Start Last Admin Trade Name Lucina PRN Reason Stop Dose Admin Amlodipine Besylate 10 mg 04/20/20 10:00 04/21/20 10:46 Norvasc - PO 10 mg DAILY TIFFANY Administration Atorvastatin Calcium 40 mg 04/19/20 22:00 04/20/20 21:15 Lipitor - PO 40 mg HS TIFFANY Administration Sodium Chloride 1,000 mls @ 45 mls/hr 04/19/20 21:49 04/20/20 22:55 Normal Saline - IV Not Given ASDIR TIFFANY Sodium Chloride 500 mls @ 500 mls/hr 04/21/20 13:22 04/21/20 13:33 Normal Saline - IV 04/21/20 14:21 500 mls/hr ASDIR STA Administration Levothyroxine Sodium 125 mcg 04/20/20 07:00 04/20/20 06:48 Synthroid - PO 125 mcg DAILY@0700 TIFFANY Administration Losartan Potassium 100 mg 04/20/20 10:00 04/21/20 10:45 Cozaar - PO 100 mg DAILY TIFFANY Administration Meclizine HCl 25 mg 04/20/20 10:00 04/21/20 10:46 Antivert - PO 25 mg DAILY TIFFANY Administration Metoprolol Succinate 50 mg 04/19/20 22:00 04/21/20 10:46 Toprol Xl - PO 50 mg BID TIFFANY Administration Nicotine 14 mg 04/20/20 10:00 04/21/20 10:45 Nicoderm Patch - TD 14 mg DAILY TIFFANY Administration Nifedipine 60 mg 04/20/20 10:00 Procardia Xl - PO DAILY TIFFANY Vital Signs Period Temp Pulse Resp BP Sys/Aranda Pulse Ox Last 24 Hr 97.4 F-98.1 F 61-79 14-20 103-150/53-97 92-95 Constitutional: Yes: Well Nourished, No Distress Eyes: No: Sclera Icterus HENT: No: Nasal Congestion Neck: No: Decreased ROM Respiratory: Yes: CTA Bilaterally. No: Accessory Muscle Use, Rales, Wheezes Gastrointestinal: Yes: Normal Bowel Sounds. No: Distention, Hepatomegaly, Palpable Mass, Tenderness Cardiovascular: Yes: Regular Rate and Rhythm JVD: No Carotid Bruit: No PMI: Non-Displaced Heart Sounds: Yes: S1, S2. No: Gallop Murmur: No: Systolic Murmur, Diastolic Murmur Extremities: No: Cold, Cyanosis Edema: No Integumentary: No: Jaundice Neurological: Yes: Alert, Oriented (x3) Psychiatric: No: Agitated a/p: carotid 07/2019: patent juan josé, known occluded lica echo 07/2019: nl lv/rv, no sig valve path, ao root 4.2 (stable) Echo 05/2016 here: nl LV/EF; nl RV; nl LA; mild MR/TR; RVSP 30-40; mild ao root and asc aorta dilation MPI 06/10 here (pers): no ST changes vs baseline; normal perfusion; nl EF; no TID reported MPI 12/2014: 3:30min; no ischemia [facility] 2011: pRCA 7-80%; mRCA [employer] collateralized by left; OM1 60-70%; ecg: unremarkable tele: sr cxr: clear dizziness: -no signs acs, chf, arrhythmia -recent office echo unremarkable and carotids with stable findings of patent juan josé, known occluded lica -tele unremarkable here -sxs seem like vertigo vs orthostatic, feeling better today (after ivfs) -+ orthostatics - endorses poor PO intake the last two weeks - encouraged increased hydration - cont IVF -ct head with small bleed, NS following, interval improvement on CT head today htn: -cont home meds CAD: -collateralized RCA dz from left system -no ischemia 2014, 2015 stress tests -no angina, no signs acs -cont home meds thoracic aorta aneurysm: -stable size on recent echo and ct, cont bp control diffuse PAD (LEs): -s/p ax-bifem bypass at [place] 2011 -outpt f/u with vascular h/o TIA/cva: -postop LE bypass, watershed infarct on MRI carotid dz: -chronic occlusion LICA; -s/p R CEA [place] 2011
--- NOTE | 2020-04-21 16:12 | PN ---
Teaching Attending Note Name of Resident: Cuate Navarrete ATTENDING PHYSICIAN STATEMENT I saw and evaluated the patient. I reviewed the resident's note and discussed the case with the resident. I agree with the resident's findings and plan as documented. SUBJECTIVE: Feeling okay except for intermittent lightheadedness. no visual disturbance/limb numbness or weakness. OBJECTIVE: Afebrile, Hemodynamically Stable. Last Vital Signs Temp Pulse Resp BP Pulse Ox 97.6 F 64 14 122/75 95 04/21/20 13:23 04/21/20 13:23 04/21/20 13:23 04/21/20 13:23 04/21/20 10:00 HEENT - Atraumatic, Normocephalic. Heart - S1, S2, RRR Lungs - clear to auscultation Abdomen - soft, non-tender. Bowel Sounds normal. Extremities - no edema, no calf tenderness. Neuro - AAO x 3. Tone/Power normal all extremities. Laboratory Results - last 24 hr 04/19/20 04/21/20 04/21/20 17:30 06:10 06:10 WBC 7.4 RBC 4.79 Hgb 14.8 Hct 44.8 MCV 93.6 MCH 30.9 MCHC 33.0 RDW 13.0 Plt Count 199 MPV 9.2 Absolute Neuts (auto) 4.1 Neutrophils % 54.8 Lymphocytes % 32.3 Monocytes % 8.1 Eosinophils % 3.7 Basophils % 1.1 Nucleated RBC % 0 Sodium 144 Potassium 4.0 Chloride 110 H Carbon Dioxide 27 Anion Gap 7 L BUN 15.3 Creatinine 0.8 Est GFR (CKD-EPI)AfAm 80.14 Est GFR (CKD-EPI)NonAf 69.14 Random Glucose 90 Calcium 9.1 Phosphorus 4.1 Magnesium 2.1 Total Bilirubin 0.6 AST 14 L ALT 19 Alkaline Phosphatase 72 Total Protein 6.1 L Albumin 3.3 L TSH 0.14 L COVID-19 ([facility]) Not detected Current Medications Generic Name Dose Route Start Last Admin Trade Name Freq PRN Reason Stop Dose Admin Amlodipine Besylate 5 mg 04/21/20 16:08 Norvasc - PO DAILY TIFFANY Atorvastatin Calcium 40 mg 04/19/20 22:00 04/20/20 21:15 Lipitor - PO 40 mg HS TIFFANY Administration Sodium Chloride 1,000 mls @ 45 mls/hr 04/19/20 21:49 04/20/20 22:55 Normal Saline - IV Not Given ASDIR TIFFANY Levothyroxine Sodium 125 mcg 04/20/20 07:00 04/20/20 06:48 Synthroid - PO 125 mcg DAILY@0700 TIFFANY Administration Losartan Potassium 50 mg 04/21/20 16:08 Cozaar - PO DAILY TIFFANY Meclizine HCl 25 mg 04/20/20 10:00 04/21/20 10:46 Antivert - PO 25 mg DAILY TIFFANY Administration Metoprolol Succinate 50 mg 04/19/20 22:00 04/21/20 10:46 Toprol Xl - PO 50 mg BID [facility] Administration Nicotine 14 mg 04/20/20 10:00 04/21/20 10:45 Nicoderm Patch - TD 14 mg DAILY [facility] Administration Nifedipine 60 mg 04/20/20 10:00 Procardia Xl - PO DAILY [facility] Home Medications Medication Instructions Recorded Aspirin [ASA -] 81 mg PO DAILY 06/12/16 Atorvastatin Ca [Lipitor] 40 mg PO HS 06/12/16 Clopidogrel Bisulfate [Plavix -] 75 mg PO DAILY 06/12/16 Levothyroxine [Synthroid -] 125 mcg PO DAILY 06/12/16 Metoprolol Succinate [Toprol Xl] 50 mg PO BID 06/12/16 Losartan Potassium [Cozaar -] 100 mg PO DAILY #60 tablet 06/14/16 Amlodipine Besylate [Norvasc -] 10 mg PO DAILY 08/20/18 Nifedipine ER [Procardia Xl -] 60 mg PO DAILY 04/19/20 ASSESSMENT AND PLAN: 79 year old female with history of PAD, hypertension, hyperlipidemia, hypothyroidism, prior TIA, Left internal carotid artery stenosis, presents with dizziness and headache found to have hypertensive emergency and petechial intracerebral hemorrhage. 1. Intracranial Hemorrhage secondary to Hypertensive Emergency BP improved. Petechial Hemorhage improving on serial CT Head studies Seen by Neurology - recommend continuing Aspirin qod and Plavix. Seen by Neurosurgery - no intervention recommended. PT eval. 2. Lightheadedness secondary to Vertigo vs Orthostasis Orthostatics positve s/p rehydration Norvasc dose decreased to 5mg and Losartan dose decreased to 50mg. Continue Meclizine Abdominal binder/YUN stockings. 3. HTN - Hypertensive on presentation, now orthostatic positive despite hydr ation. Dose of FLORECITA-I and Norvasc reduced. Nifedipine held for now. continue Metoprolol. 4. Hypothyroidism - reduce Levothyroxine dose to 100mcg. Repeat TSH in 3-4 weeks 5. History of TIA, PAD, CAD Continue Aspirin QOD and Plavix as recommended by Neurology. DVT Px - SCDs.
[2020-04-21] MEDS ORDERED: ASPIRIN 81 MG CHEWABLE TABLETS PO SCH (16:45)
[2020-04-21] MEDS: CLOPIDOGREL BISULFATE 75 MG TABLET (FP) PO SCH (16:48)
--- NOTE | 2020-04-21 20:19 | PN ---
Physical Exam: SUBJECTIVE: No overnight events. Patient seen and examined. Pt endorses lightheadness, even while supine on her bed. OBJECTIVE: Vital Signs Period Temp Pulse Resp BP Sys/Aranda Pulse Ox Last 24 Hr 97.4 F-98.1 F 61-79 14-18 119-150/72-97 92-97 GENERAL: The patient is awake, alert, and fully oriented, in no acute distress. HEAD: Normal with no signs of trauma. EYES: PERRL, extraocular movements intact No ptosis. ENT: Ears normal, nares patent, oropharynx clear without exudates, MMM LUNGS: Breath sounds equal, clear to auscultation bilaterally, no wheezes, no crackles, no accessory muscle use. HEART: RRR, S1, S2, 3/6 systolic murmur best heard at aortic area ABDOMEN: Soft, nontender, nondistended, normoactive bowel sounds, no guarding EXTREMITIES: 2+ pulses, warm, well-perfused, no edema. 5/5 Strength b/l UE, LE. Sensation intact b/l UE, LE. NEUROLOGICAL: Cranial nerves II through XII grossly intact. Normal speech. Romberg, rapid alternative hand movements, nose to finger, heel to madrigal WNL PSYCH: Normal mood, normal affect. Laboratory Results - last 24 hr 04/19/20 04/21/20 04/21/20 17:30 06:10 06:10 WBC 7.4 RBC 4.79 Hgb 14.8 Hct 44.8 MCV 93.6 MCH 30.9 MCHC 33.0 RDW 13.0 Plt Count 199 MPV 9.2 Absolute Neuts (auto) 4.1 Neutrophils % 54.8 Lymphocytes % 32.3 Monocytes % 8.1 Eosinophils % 3.7 Basophils % 1.1 Nucleated RBC % 0 Sodium 144 Potassium 4.0 Chloride 110 H Carbon Dioxide 27 Anion Gap 7 L BUN 15.3 Creatinine 0.8 Est GFR (CKD-EPI)AfAm 80.14 Est GFR (CKD-EPI)NonAf 69.14 Random Glucose 90 Calcium 9.1 Phosphorus 4.1 Magnesium 2.1 Total Bilirubin 0.6 AST 14 L ALT 19 Alkaline Phosphatase 72 Total Protein 6.1 L Albumin 3.3 L TSH 0.14 L COVID-19 ([facility]) Not detected Active Medications Generic Name Dose Route Start Last Admin Trade Name Freq PRN Reason Stop Dose Admin Amlodipine Besylate 5 mg 04/22/20 10:00 Norvasc - PO DAILY [facility] Aspirin 81 mg 04/21/20 16:45 04/21/20 16:48 Asa - PO 81 mg Q48H TIFFANY Administration Atorvastatin Calcium 40 mg 04/19/20 22:00 04/20/20 21:15 Lipitor - PO 40 mg HS TIFFANY Administration Clopidogrel Bisulfate 75 mg 04/21/20 16:45 04/21/20 16:48 Plavix - PO 75 mg DAILY TIFFANY Administration Sodium Chloride 1,000 mls @ 45 mls/hr 04/19/20 21:49 04/20/20 22:55 Normal Saline - IV Not Given ASDIR TIFFANY Levothyroxine Sodium 100 mcg 04/22/20 07:00 Synthroid - PO DAILY@0700 [facility] Losartan Potassium 50 mg 04/22/20 10:00 Cozaar - PO DAILY [facility] Meclizine HCl 25 mg 04/20/20 10:00 04/21/20 10:46 Antivert - PO 25 mg DAILY TIFFANY Administration Metoprolol Succinate 50 mg 04/19/20 22:00 04/21/20 10:46 Toprol Xl - PO 50 mg BID TIFFANY Administration Nicotine 14 mg 04/20/20 10:00 04/21/20 10:45 Nicoderm Patch - TD 14 mg DAILY [facility] Administration Nifedipine 60 mg 04/20/20 10:00 Procardia Xl - PO DAILY [facility] Repeat CTH: Interval decrease in size of previously visualized tiny hyperdense focus in right frontal lobe, anteriorly now measuring 3 mm, likely represening a tiny focus of petechial hemorrhage Orthostatic vitals supine 118/71 HR 65 sitting 122/69 HR69 standing 88/56 HR 79 ASSESSMENT/PLAN: 79 F PMH Hypothyroidism, h/o CVA (L ICA occlusion) HTN, PAD, CAD, s/p cardiac stent 4 yrs ago [place], thoracic aortic aneurysm (ascending 4.1 cm, descending 4.7 cm), HLD p/w 2 days vertigo/Headache and 2 weeks of lightheadness. Admitted for hypertensive emergency and being managed for petechial intracerebral hemorrhage. #Presyncope 2/2 ICH repeat CTH: 3 mm interval decrease in petechial hemorrhage size -c/w home losartan, amlodipine, metoprolol for BP control Neurosurgery c/s appreciated: no intervention -Neurology c/s appreciated. Aspirin every other day. Plavix daily #Hypertensive emergency -c/w home metoprolol for BP control; nifedepine held 2/2 orthostatic hypotension -losartan decreased to 50 mg. amlodipine decreased to 5mg. #Dizziness/Vertigo -[place] negative -orthostatic vitals positive again today for orthostatic hypotension -nidedipine held for orthostatic hypotension. -losartan decreased to 50 mg. amlodipine decreased to 5mg. -c/w NS -c/w meclizine -start YUN stockings & abdominal binder -repeat orthostatic vitals in AM #H/o hypothyroidism. -TSH decreased at 0.1. 0.14 today. Free T4, resin T3 uptake are NORMAL. -Low TSH likely 2/2 to levothyroxine dosage -decreased levothyroxine to 100 mcg -TSH outpt 3 wks #CAD, PAD, h/o CVA c/w home dose atorvastatin -Neurology c/s appreciated. Aspirin every other day. Plavix daily #DVT PPX SCDs #FEN NS monitor lytes start Na+ controlled diet #DISPO maintain med surg Visit type - Emergency Visit Emergency Visit: Yes ED Registration Date: 04/19/20 Care time: The patient presented to the Emergency Department on the above date and was hospitalized for further evaluation of their emergent condition. - New Patient This patient is new to me today: No - Critical Care Critical Care patient: No - Medication Review Med list reviewed for High Risk Meds patients 65 and older: Yes ATTENDING PHYSICIAN STATEMENT I saw and evaluated the patient. I reviewed the resident's note and discussed the case with the resident. I agree with the resident's findings and plan as documented. SUBJECTIVE: OBJECTIVE: ASSESSMENT AND PLAN:
[2020-04-21] MEDS: SODIUM CHLORIDE 1,000 ML IV SCH (21:01)
[2020-04-21] MEDS: ATORVASTATIN CA 40 MG TABLET (FP) PO SCH (21:02)
[2020-04-22] MEDS ORDERED: LEVOTHYROXINE NA 100 MCG TABLET (FP) PO SCH (07:00)
[2020-04-22 07:03] LABS: BASO % 1.2 % (0-2.0); HEMATOCRIT 47.8 % (32.4-45.2); HEMOGLOBIN 15.8 GM/dL (10.7-15.3); LYMPH % 30.3 % (8-40); MCH 31.3 pg (25.7-33.7); MCHC 33.1 g/dl (32.0-36.0); MEAN CELL VOLUME 94.6 fl (80-96); MEAN PLT VOLUME 9.1 fl (7.5-11.1); MONO % 7.5 % (3.8-10.2); PLATELET COUNT 212 K/MM3 (134-434); RBC 5.05 M/mm3 (3.60-5.2); RDW 13.2 % (11.6-15.6); WHITE BLOOD COUNT 7.5 K/mm3 (4.0-10.0)
[2020-04-22 07:37] LABS: ALBUMIN 3.6 g/dl (3.4-5.0); BILIRUBIN,TOTAL 0.6 mg/dL (0.2-1); CALCIUM 9.1 mg/dL (8.5-10.1); CREATININE 0.9 mg/dL (0.55-1.3); MAGNESIUM 2.3 mg/dL (1.8-2.4); PHOSPHOROUS 4.4 mg/dL (2.5-4.9); POTASSIUM 3.9 mmol/L (3.5-5.1); TOT PROT 6.7 g/dl (6.4-8.2)
--- NOTE | 2020-04-22 09:01 | PN ---
Progress Note (short form) - Note Progress Note: NEUROSURGERY H/o HTN, HLD, CAD, thoracic aortic aneurysm, cardiac stent, PAD c/o dizziness and vertigo. One episode of vomiting. Came to the ED as her symptoms of vertigo still persisted, and c/o of occipital headache initially but not now. Hypertensive in ED, Had prior similar symptoms but not as severe. No H/A or N/V. Minimal to no dizziness or vertigo today. PE: AF, VSS 119/81 General- unremarkable, sitting up at bedside CN- intact; Motor- 5/5 without drift; Sensation- intact LT; DTR- 1+; Cerebellar- mild past-pointing B Head CT- R frontal periventricular small hyperdensity 2 x2 mm with no edema or mass effect f/u Head CT- Small R frontal hyperdensity slightly larger 3x5 mm/more diffuse and faint than on initial CT 2nd f/u CT- stable/smaller size of R frontal small 3 x2 mm hemorrhage Small R frontal hypertensive bleed No neurosurgical intervention indicated Smoking cessation and risk factor for CVA modification including BP control If recurrent symptoms also consider outpatient ENT eval and neurology f/u
[2020-04-22] MEDS: CLOPIDOGREL BISULFATE 75 MG TABLET (FP) PO SCH (09:55)
[2020-04-22] MEDS: MECLIZINE HCL 25 MG TABLET (FP) PO SCH (09:55)
[2020-04-22] MEDS ORDERED: PT OWN MED DRAWER 7, Y5N ONE (09:57)
[2020-04-22] MEDS: NICOTINE 14 MG/24 HOURS TOPICAL PATCH TD SCH (09:58)
[2020-04-22] MEDS ORDERED: amLODIPine BESYLATE 5 MG TABLET (FP) PO SCH (10:00)
[2020-04-22] MEDS ORDERED: LOSARTAN POTASSIUM 25 MG TABLET PO SCH (10:00)
[2020-04-22] MEDS ORDERED: LOSARTAN POTASSIUM 50 MG TABLET (FP) PO SCH (10:00)
--- NOTE | 2020-04-22 12:09 | PN ---
Progress Note (short form) - Note Progress Note: cc: dizziness s: no chest pain, palps, dyspnea, dizziness Current Medications Generic Name Dose Route Start Last Admin Trade Name Lucina PRN Reason Stop Dose Admin Amlodipine Besylate 5 mg 04/22/20 10:00 04/22/20 09:55 Norvasc - PO 5 mg DAILY [facility] Administration Aspirin 81 mg 04/21/20 16:45 04/21/20 16:48 Asa - PO 81 mg Q48H TIFFANY Administration Atorvastatin Calcium 40 mg 04/19/20 22:00 04/21/20 21:02 Lipitor - PO 40 mg HS TIFFANY Administration Clopidogrel Bisulfate 75 mg 04/21/20 16:45 04/22/20 09:55 Plavix - PO 75 mg DAILY TIFFANY Administration Sodium Chloride 1,000 mls @ 45 mls/hr 04/19/20 21:49 04/21/20 21:01 Normal Saline - IV Not Given ASDIR TIFFANY Levothyroxine Sodium 100 mcg 04/22/20 07:00 04/22/20 06:04 Synthroid - PO 100 mcg DAILY@0700 TIFFANY Administration Losartan Potassium 75 mg 04/22/20 10:00 04/22/20 09:55 Cozaar - PO 75 mg DAILY TIFFANY Administration Meclizine HCl 25 mg 04/20/20 10:00 04/22/20 09:55 Antivert - PO 25 mg DAILY TIFFANY Administration Metoprolol Succinate 50 mg 04/19/20 22:00 04/22/20 09:55 Toprol Xl - PO 50 mg BID TIFFANY Administration Nicotine 14 mg 04/20/20 10:00 04/22/20 09:58 Nicoderm Patch - TD 14 mg DAILY TIFFANY Administration Constitutional: Yes: Well Nourished, No Distress Eyes: No: Sclera Icterus HENT: No: Nasal Congestion Neck: No: Decreased ROM Respiratory: Yes: CTA Bilaterally. No: Accessory Muscle Use, Rales, Wheezes Gastrointestinal: Yes: Normal Bowel Sounds. No: Distention, Hepatomegaly, Palpable Mass, Tenderness Cardiovascular: Yes: Regular Rate and Rhythm JVD: No Carotid Bruit: No PMI: Non-Displaced Heart Sounds: Yes: S1, S2. No: Gallop Murmur: No: Systolic Murmur, Diastolic Murmur Extremities: No: Cold, Cyanosis Edema: No Integumentary: No: Jaundice Neurological: Yes: Alert, Oriented (x3) Psychiatric: No: Agitated a/p: carotid 07/2019: patent juan josé, known occluded lica echo 07/2019: nl lv/rv, no sig valve path, ao root 4.2 (stable) Echo 05/2016 here: nl LV/EF; nl RV; nl LA; mild MR/TR; RVSP 30-40; mild ao root and asc aorta dilation MPI 06/10 here (pers): no ST changes vs baseline; normal perfusion; nl EF; no TID reported MPI 12/2014: 3:30min; no ischemia [facility] 2011: pRCA 7-80%; mRCA [employer] collateralized by left; OM1 60-70%; ecg: unremarkable tele: sr, PVCs cxr: clear dizziness: -no signs acs, chf, arrhythmia -recent office echo unremarkable and carotids with stable findings of patent juan josé, known occluded lica -tele unremarkable here -sxs seem like vertigo vs orthostatic, +orthostatic here - endorses poor PO intake the last two weeks - cont IVF -ct head with small bleed, NS following, interval improvement on CT head today - dizziness resolved with IVF and reduced BP meds, nifedipine dc'ed - continue meds at lower doses, BP reasonably controlled - losartan 75 mg daily, metorpolol succ 50 mg BID and amlodipine 5 mg daily - encouraged increased hydration - stable for dc from cardiac perspective htn: -reduced doses of home meds as above - nifedipine dc'ed CAD: -collateralized RCA dz from left system -no ischemia 2014, 2015 stress tests -no angina, no signs acs -cont home meds thoracic aorta aneurysm: -stable size on recent echo and ct, cont bp control diffuse PAD (LEs): -s/p ax-bifem bypass at [place] 2011 -outpt f/u with vascular h/o TIA/cva: -postop LE bypass, watershed infarct on MRI carotid dz: -chronic occlusion LICA; -s/p R CEA [place] 2011
--- NOTE | 2020-04-22 14:09 | PN ---
Teaching Attending Note Name of Resident: Cuate Navarrete ATTENDING PHYSICIAN STATEMENT I saw and evaluated the patient. I reviewed the resident's note and discussed the case with the resident. I agree with the resident's findings and plan as documented. SUBJECTIVE: Feeling well, lightheadedness resolved. No lightheadedness on ambulation. OBJECTIVE: Afebrile, Hemodynamically Stable. Last Vital Signs Temp Pulse Resp BP Pulse Ox 98.3 F 63 18 133/90 93 L 04/22/20 09:53 04/22/20 11:27 04/22/20 11:27 04/22/20 11:27 04/22/20 09:53 Heart - S1, S2, RRR Lungs - clear to auscultation Abdomen - soft, non-tender. Bowel Sounds normal. Extremities - no edema, no calf tenderness. Neuro - AAO x 3. JORGE. Tone/Power normal all extremities. Laboratory Results - last 24 hr 04/22/20 04/22/20 06:05 06:05 WBC 7.5 RBC 5.05 Hgb 15.8 H Hct 47.8 H MCV 94.6 MCH 31.3 MCHC 33.1 RDW 13.2 Plt Count 212 MPV 9.1 Absolute Neuts (auto) 4.2 Neutrophils % 56.0 Lymphocytes % 30.3 Monocytes % 7.5 Eosinophils % 5.0 H Basophils % 1.2 Nucleated RBC % 0 Sodium 144 Potassium 3.9 Chloride 109 H Carbon Dioxide 29 Anion Gap 6 L BUN 16.0 Creatinine 0.9 Est GFR (CKD-EPI)AfAm 69.50 Est GFR (CKD-EPI)NonAf 59.96 Random Glucose 91 Calcium 9.1 Phosphorus 4.4 Magnesium 2.3 Total Bilirubin 0.6 AST 14 L ALT 19 Alkaline Phosphatase 79 Total Protein 6.7 Albumin 3.6 Current Medications Generic Name Dose Route Start Last Admin Trade Name Freq PRN Reason Stop Dose Admin Amlodipine Besylate 5 mg 04/22/20 10:00 04/22/20 09:55 Norvasc - PO 5 mg DAILY [facility] Administration Aspirin 81 mg 04/21/20 16:45 04/21/20 16:48 Asa - PO 81 mg Q48H TIFFANY Administration Atorvastatin Calcium 40 mg 04/19/20 22:00 04/21/20 21:02 Lipitor - PO 40 mg HS TIFFANY Administration Clopidogrel Bisulfate 75 mg 04/21/20 16:45 04/22/20 09:55 Plavix - PO 75 mg DAILY [facility] Administration Sodium Chloride 1,000 mls @ 45 mls/hr 04/19/20 21:49 04/21/20 21:01 Normal Saline - IV Not Given ASDIR TIFFANY Levothyroxine Sodium 100 mcg 04/22/20 07:00 04/22/20 06:04 Synthroid - PO 100 mcg DAILY@0700 [facility] Administration Losartan Potassium 75 mg 04/22/20 10:00 04/22/20 09:55 Cozaar - PO 75 mg DAILY [facility] Administration Meclizine HCl 25 mg 04/20/20 10:00 04/22/20 09:55 Antivert - PO 25 mg DAILY [facility] Administration Metoprolol Succinate 50 mg 04/19/20 22:00 04/22/20 09:55 Toprol Xl - PO 50 mg BID [facility] Administration Nicotine 14 mg 04/20/20 10:00 04/22/20 09:58 Nicoderm Patch - TD 14 mg DAILY [facility] Administration ASSESSMENT AND PLAN: 79 year old female with history of PAD, hypertension, hyperlipidemia, hypothyroidism, prior TIA, Left internal carotid artery stenosis, presents with dizziness and headache found to have hypertensive emergency and petechial intracerebral hemorrhage. 1. Intracranial Hemorrhage secondary to Hypertensive Emergency BP improved. Petechial Hemorhage improving on serial CT Head studies Seen by Neurology - recommend continuing Aspirin qod and Plavix. Seen by Neurosurgery - no intervention recommended. PT eval. 2. Lightheadedness secondary to Orthostasis Orthostatics positive - symptoms improved s/p IV hydration. Norvasc dose decreased to 5mg and Losartan dose decreased to 75mg. Nifedipine stopped. Continue Meclizine Abdominal binder/YUN stockings on discharge. 3. HTN - Hypertensive on presentation, now orthostatic changes positive. Dose of FLORECITA-I and Norvasc reduced. Nifedipine held for now. Continue Metoprolol. Cardiology in agreement with all of the above. Will follow closely with Cardiology on discharge for BP control. 4. Hypothyroidism - reduce Levothyroxine dose to 100mcg. Repeat TSH in 3-4 weeks 5. History of TIA, PAD, CAD Continue Aspirin QOD and Plavix as recommended by Neurology. 6. Active Smoker - counselled. Prescribed Nicotine patches. Medically, Neurologically and Hemodynamically Stable for discharge. with Cardio, Neurology, and Neurosurgery follow up.
[2020-04-22 14:50] VITALS: BP 141/82; PULSE 61; TEMP 97.4
--- NOTE | 2020-04-22 17:57 | DS ---
Physical Exam: SUBJECTIVE: No overnight events. Patient seen and examined. Pt endorses lightheadness improved. OBJECTIVE: Vital Signs Period Temp Pulse Resp BP Sys/Aranda Pulse Ox Last 24 Hr 97.4 F-98.3 F 61-76 17-20 120-166/68-98 90-97 PHYSICAL EXAM GENERAL: The patient is awake, alert, and fully oriented, in no acute distress. HEAD: Normal with no signs of trauma. EYES: PERRL, extraocular movements intact No ptosis. ENT: Ears normal, nares patent, oropharynx clear without exudates, MMM LUNGS: Breath sounds equal, clear to auscultation bilaterally, no wheezes, no crackles, no accessory muscle use. HEART: RRR, S1, S2, 3/6 systolic murmur best heard at aortic area ABDOMEN: Soft, nontender, nondistended, normoactive bowel sounds, no guarding EXTREMITIES: 2+ pulses, warm, well-perfused, no edema. 5/5 Strength b/l UE, LE. Sensation intact b/l UE, LE. NEUROLOGICAL: Cranial nerves II through XII grossly intact. Normal speech. Romberg, rapid alternative hand movements, nose to finger, heel to madrigal WNL PSYCH: Normal mood, normal affect. LABS Laboratory Results - last 24 hr 04/22/20 04/22/20 06:05 06:05 WBC 7.5 RBC 5.05 Hgb 15.8 H Hct 47.8 H MCV 94.6 MCH 31.3 MCHC 33.1 RDW 13.2 Plt Count 212 MPV 9.1 Absolute Neuts (auto) 4.2 Neutrophils % 56.0 Lymphocytes % 30.3 Monocytes % 7.5 Eosinophils % 5.0 H Basophils % 1.2 Nucleated RBC % 0 Sodium 144 Potassium 3.9 Chloride 109 H Carbon Dioxide 29 Anion Gap 6 L BUN 16.0 Creatinine 0.9 Est GFR (CKD-EPI)AfAm 69.50 Est GFR (CKD-EPI)NonAf 59.96 Random Glucose 91 Calcium 9.1 Phosphorus 4.4 Magnesium 2.3 Total Bilirubin 0.6 AST 14 L ALT 19 Alkaline Phosphatase 79 Total Protein 6.7 Albumin 3.6 HOSPITAL COURSE: 79 F PMH Hypothyroidism, h/o CVA (L ICA occlusion) HTN, PAD, CAD, s/p cardiac stent 4 yrs ago [place], thoracic aortic aneurysm (ascending 4.1 cm, descending 4.7 cm), HLD p/w 2 days vertigo/Headache and 2 weeks of lightheadedness. In the ED, her blood pressure was found to be 198/78. She was given Norvasc and metoprolol. Admitted for hypertensive emergency. EKG showed normal sinus rhythm and troponin negative X3. CT head showed a tiny hyperdensity in the right front lobe measuring 3 mm. However, repeat CTH showed a minimal increase in size of previously visualized punctuate hyperdensity in R anterior frontal periventricular white matter, now measuring 5X3.5 mm, suggestive of petechial hemorrhage. Neurosurgery evaluated the patient. No neurosurgical intervention was needed at this time. Pt was manged with tight blood pressure. Losartan, amlodipine, and metoprolol were given. Pts symptoms improved. Pt is stable for discharge. Date of Admission:04/19/20 Date of Discharge: 04/22/20 Minutes to complete discharge: 43 Discharge Summary Problems reviewed: Yes Reason For Visit: PRE-SYNCOPE,HYPERTENSION Condition: Stable - Instructions Diet, Activity, Other Instructions: You were evaluated in the hospital for complaint of spinning sensation. Imaging showed a small bleed in one of the areas of the brain, ~3mm in size. Follow-up imaging showed that the bleed shrunk. A neurologist and a neurosurgeon evaluated you during this hospitalization and determined to manage your care with tight blood pressure control with antihypertensive medications as your blood pressure was found to be very elevated. If you have recurrent dizziness or spinning sensation, please follow-up with an ENT physician or a neurologist. If you have any recurrence of your symptoms, please seek medical attention from your primary care doctor or closest Emergency Room. You were found to have low thyroid stimulating hormone (TSH) levels. Please follow-up for a repeat Thyroid Stimulating Hormone measurement in 3-4 weeks. Your symptoms improved. You are stable for discharge. Other Instructions: - please consider stopping all tobacco usage. You will be given a prescription for Nicotine patch to support your efforts. - take your blood pressure daily, during a quiet and peaceful period and record it so you can report it to your Primary care doctor and Furniture Repairer. MEDICATIONS Amlodipine (Norvasc) was started at 5 mg once a day. Losartan (Cozaar) was DECREASED to 75 mg once a day. Levothyroxine (Synthroid) was DECREASED to 100 mg once a day. Please change your daily aspirin 81 mg to every other day. Please STOP taking nifedepine (Procardia Xl) Please take your other medications as prescribed. You can also take Meclizine 25mg if needed for vertigo. FOLLOW-UP Please follow-up with kosher sealer, Dr. Hollingsworth, regarding your blood pressure. Please follow-up with neurologist, Dr. Kumari, or ENT, Dr. Navarrete, regarding your room-spinning sensation and dizziness, possible Vertigo. Please follow-up with neurosurgeon, Dr. De Souza, regarding your the bleed in your brain. Please follow-up with sailing master, Dr. Mehta, to follow-up on your thyroid hormone levels. Please follow-up with primary care physician at [facility] [place], for general health maintenance. Please follow a low fat, low cholesterol, low sodium diet. If you have any new, worsening, or concerning symptoms please return to the ED or call 911 Referrals: [facility] [place] [Provider Group] Dejan Hollingsworth MD [Staff Physician] - 1 Week (Hx CAD, orthostatic hypotension, petechial ICH) Clive De Souaz MD [Staff Physician] - 1 Week (ICH - on ASA, PLAVIX) Milton Mehta MD [Staff Physician] - 1 Week (Hypothyroidism, low TSH, dose adjusted) Tadeo Kumari MD [Staff Physician] - 1 Week (ICH - on ASA, PLAVIX) Glynn Navarrete MD [Staff Physician] - Disposition: HOME - Home Medications Comprehensive Discharge Medication List: Ambulatory Orders Atorvastatin Ca [Lipitor] 40 mg PO HS 06/12/16 Clopidogrel Bisulfate [Plavix -] 75 mg PO DAILY 06/12/16 Metoprolol Succinate [Toprol Xl] 50 mg PO BID 06/12/16 Amlodipine Besylate [Norvasc -] 5 mg PO DAILY #30 tablet 04/22/20 Aspirin [ASA -] 81 mg PO Q48H tab.chew 04/22/20 Levothyroxine [Synthroid -] 100 mcg PO DAILY@0700 30 Days #30 tablet 04/22/20 Losartan Potassium [Cozaar -] 75 mg PO DAILY 30 Days #90 tablet 04/22/20 Meclizine HCl [Antivert -] 25 mg PO DAILY PRN 30 Days #30 tablet 04/22/20 Nicotine Patch [Nicoderm Patch -] 14 mg TD DAILY 30 Days #30 patch 04/22/20 This patient is new to me today: No Emergency Visit: Yes ED Registration Date: 04/19/20 Care time: The patient presented to the Emergency Department on the above date and was hospitalized for further evaluation of their emergent condition. Critical Care patient: No - Discharge Referral Referred to [facility] Med [facility] No ATTENDING PHYSICIAN STATEMENT I saw and evaluated the patient. I reviewed the resident's note and discussed the case with the resident. I agree with the resident's findings and plan as documented. SUBJECTIVE: OBJECTIVE: ASSESSMENT AND PLAN:
== END 2020-04-22 16:00 | disposition home or self-care (01) | DRG 304 ==
LOC: JER 16:24 → JERBED 19:36 → OBSVTOIN 20:28 → J4S 04-20 04:54
PROVIDERS: ADMIT Internal Medicine
DX: I16.1 Hypertensive emergency (principal); I61.9 Nontraumatic intracerebral hemorrhage, unspecified; I25.10 Atherosclerotic heart disease of native coronary artery without angina pectoris; E78.5 Hyperlipidemia, unspecified; I73.9 Peripheral vascular disease, unspecified; R55 Syncope and collapse; R42 Dizziness and giddiness; I71.2 Thoracic aortic aneurysm, without rupture; I16.0 Hypertensive urgency; E03.9 Hypothyroidism, unspecified; F17.210 Nicotine dependence, cigarettes, uncomplicated
CPT/HCPCS: 36415; 70450-TC; 71045-TC-FY; 80053; 82550; 83735; 84100; 84439; 84443; 84479; 84484; 85025; 93005; 93010; 97116-GP; 97161-GP; 99285-25; G0378; U0003

== ENCOUNTER 2024-03-23 09:44 | Observation (INO) | payer OTHER ==
[2024-03-23 09:55] VITALS: BMI 21.1
[2024-03-23 11:17] LABS: EOS % 0.8 % (0-4.5); HEMATOCRIT 39.7 % (32.4-45.2); HEMOGLOBIN 13.5 GM/dL (10.7-15.3); LYMPH % 12.1 % (8-40); MCH 31.3 pg (25.7-33.7); MCHC 33.9 g/dl (32.0-36.0); MEAN CELL VOLUME 92.3 fl (80-96); MEAN PLT VOLUME 9.3 fl (7.5-11.1); NEUT % 80.1 % (42.8-82.8); PLATELET COUNT 250 10^3/uL (134-434); RDW 13.5 % (11.6-15.6); WHITE BLOOD COUNT 11.7 K/mm3 (4.0-10.0)
[2024-03-23 11:39] LABS: POTASSIUM 3.4 mmol/L (3.5-5.1)
[2024-03-23 11:40] LABS: CALCIUM 9.6 mg/dL (8.5-10.1)
[2024-03-23 11:41] LABS: ALBUMIN 3.7 g/dl (3.4-5.0); BLOOD UREA NITROGEN 18.4 mg/dL (7-18); MAGNESIUM 1.8 mg/dL (1.8-2.4)
[2024-03-23] MEDS ORDERED: ONDANSETRON 4 MG/2 ML VIAL ONE (11:41)
[2024-03-23 11:44] LABS: CREATININE 0.8 mg/dL (0.55-1.3)
[2024-03-23 11:46] LABS: BILIRUBIN,TOTAL 0.5 mg/dL (0.2-1); TOT PROT 6.5 g/dl (6.4-8.2)
[2024-03-23 11:48] LABS: LACTIC ACID 2.1 mmol/L (0.4-2.0)
[2024-03-23] MEDS: SODIUM CHLORIDE 1,000 ML IV STA (11:49)
[2024-03-23] MEDS: ONDANSETRON 4 MG/2 ML VIAL IVPUSH ONE (11:49)
[2024-03-23] MEDS: SODIUM CHLORIDE 0.9% 500 ML INFUS.BAG IV ONE (15:17)
[2024-03-23] MEDS ORDERED: POTASSIUM CHLORIDE ORAL LIQUID 20 MEQ/15 ML ONE (15:48)
[2024-03-23] MEDS: POTASSIUM CHLORIDE ORAL LIQUID 20 MEQ/15 ML PO ONE (15:51)
[2024-03-23 17:11] LABS: PH,URINE 5.5 (5.0-8.0); URINE APPEARANCE CLEAR; URINE BILIRUBIN NEGATIVE (NEGATIVE); URINE COLOR YELLOW; URINE GLUCOSE (UA) NEGATIVE (NEGATIVE); URINE KETONE 1+ (NEGATIVE); URINE LEUK ESTERASE NEGATIVE (NEGATIVE); URINE NITRITE NEGATIVE (NEGATIVE); URINE PROTEIN NEGATIVE (NEGATIVE); URINE UROBILINOGEN 0.2 mg/dL (0.2-1.0)
[2024-03-23] MEDS ORDERED: PIPERACILLIN/TAZOB 4.5 GM 4.5 GM/100 ML BAG IVPB ONE (17:33)
[2024-03-23 17:38] LABS: EPI CELLS 5 /uL (0-25.1); HYALINE CASTS 3 /uL (0-3.1); URINE BACTERIA 1 /uL (0-1359); URINE RBC 11 /uL (0-23.9); URINE WBC 11 /uL (0-25.8)
[2024-03-23] MEDS: PIPERACILLIN/TAZOB 4.5 GM 4.5 GM in DEXTROSE 5%-WATER 100 ML IVPB ONE (17:42)
[2024-03-23] MEDS ORDERED: ONDANSETRON 4 MG/2 ML VIAL IVPUSH PRN (19:33)
[2024-03-23] MEDS ORDERED: ACETAMINOPHEN 1000 MG/100 ML BAG IVPB PRN (19:33)
[2024-03-23] MEDS: SODIUM CHLORIDE 1,000 ML IV SCH (21:27)
[2024-03-23] MEDS: ATORVASTATIN CA 40 MG TABLET (FP) PO SCH (21:27)
[2024-03-24] MEDS: LEVOTHYROXINE NA 100 MCG TABLET (FP) PO SCH (06:17)
[2024-03-24 08:19] LABS: BASO % 1.1 % (0-2.0); EOS % 2.4 % (0-4.5); HEMATOCRIT 36.6 % (32.4-45.2); HEMOGLOBIN 12.8 GM/dL (10.7-15.3); LYMPH % 22.6 % (8-40); MCHC 34.9 g/dl (32.0-36.0); MEAN CELL VOLUME 91.7 fl (80-96); MEAN PLT VOLUME 9.1 fl (7.5-11.1); MONO % 9.3 % (3.8-10.2); NEUT % 64.6 % (42.8-82.8); PLATELET COUNT 210 10^3/uL (134-434); RDW 13.7 % (11.6-15.6); WHITE BLOOD COUNT 8.1 K/mm3 (4.0-10.0)
[2024-03-24 08:30] LABS: POTASSIUM 3.7 mmol/L (3.5-5.1)
[2024-03-24 08:47] LABS: CALCIUM 8.6 mg/dL (8.5-10.1)
[2024-03-24 08:48] LABS: ALBUMIN 3.1 g/dl (3.4-5.0); BLOOD UREA NITROGEN 8.1 mg/dL (7-18)
[2024-03-24 08:51] LABS: CREATININE 0.5 mg/dL (0.55-1.3)
[2024-03-24 08:53] LABS: BILIRUBIN,TOTAL 0.7 mg/dL (0.2-1); TOT PROT 5.8 g/dl (6.4-8.2)
[2024-03-24] MEDS: amLODIPine BESYLATE 5 MG TABLET (FP) PO SCH (09:53)
[2024-03-24] MEDS: LOSARTAN POTASSIUM 25 MG TABLET PO SCH (09:53)
[2024-03-24] MEDS: ASPIRIN 81 MG CHEWABLE TABLETS PO SCH (09:53)
[2024-03-24 12:38] VITALS: RESP 18
[2024-03-24 14:26] VITALS: BP 133/74; PULSE 63; TEMP 98.2
== END 2024-03-24 17:51 | disposition short-term general hospital (02) ==
LOC: JER 09:44 → JERBED 16:49 → J7W 19:31
PROVIDERS: ADMIT Internal Medicine; ATTEND Nurse Practitioner
PROC: 3E033GC Introduction of Other Therapeutic Substance into Peripheral Vein, Percutaneous Approach (ICD-10-PCS; principal; 2024-03-23)
PROC: 3E03329 Introduction of Other Anti-infective into Peripheral Vein, Percutaneous Approach (ICD-10-PCS; 2024-03-23)
PROC: 3E0337Z Introduction of Electrolytic and Water Balance Substance into Peripheral Vein, Percutaneous Approach (ICD-10-PCS; 2024-03-23)
DX: K55.059 Acute (reversible) ischemia of intestine, part and extent unspecified (principal); I73.9 Peripheral vascular disease, unspecified; I25.10 Atherosclerotic heart disease of native coronary artery without angina pectoris; E78.5 Hyperlipidemia, unspecified; I10 Essential (primary) hypertension; I71.20 Thoracic aortic aneurysm, without rupture, unspecified; R63.30 Feeding difficulties, unspecified; R63.4 Abnormal weight loss; R10.9 Unspecified abdominal pain; R78.81 Bacteremia; R19.7 Diarrhea, unspecified; F17.200 Nicotine dependence, unspecified, uncomplicated
CPT/HCPCS: 36415; 74177-TC; 80053; 81003; 83605; 83690; 83735; 84484; 85025; 87040; 87086; 93005; 93010; 96361; 96365; 96375; 99285-25; G0378; Q9967